=== PATIENT | male | born 1935 | race Caucasian/White ===

== ENCOUNTER 2017-08-14 19:01 | Observation (INO) ==
[2017-08-14] MEDS ORDERED: SALINE FLUSH 10ml SYRINGE IVF PRN (19:32)
--- NOTE | 2017-08-14 19:34 | Emergency Department Report ---
General Adult HPI - General Chief complaint: Weakness Stated complaint: leg weakness Time Seen by Provider: 08/14/17 19:17 Source: patient, family Mode of arrival: wheelchair Limitations: other (dementia) - History of Present Illness HPI narrative: 82-year-old male presents to the emergency department with a chief complaint of weakness in the right lower extremity and a cough. Patient noted onset of symptoms one day ago. He was at home when his symptoms began. Symptoms have been persistent in nature since onset. Cough is productive of a clear mucous. He has also been more generally weak than normal. He denies any trauma or injury. He denies any pain or discomfort. Patient was at home when his symptoms began. Symptoms have been persistent in nature since onset. - Related Data Home Medications Medication Instructions Recorded Confirmed Namenda XR (memantine) 28 mg 28 mg PO DAILY each 01/25/17 08/14/17 capsule sprinkle,extended release 24hr Nexium (Esomeprazole) 20 mg 20 mg PO DAILY cap 01/25/17 08/14/17 capsule,delayed release Zyrtec (Cetirizine) 10 mg tablet 10 mg PO DAILY PRN tab 01/25/17 08/14/17 aspirin 81 mg tablet,delayed 81 mg PO DAILY tab 02/02/17 08/14/17 release Hydrocodone/Chlorphen Oral Liq 5 ml PO PRN PRN 08/14/17 08/14/17 [Tussionex] Metformin [Glucophage] 500 mg PO BID 08/14/17 08/14/17 Simvastatin [Zocor] 10 mg PO HS 08/14/17 08/14/17 guaiFENesin [Mucinex] 1,200 mg PO BID PRN 08/14/17 08/14/17 Previous Rx's Medication Instructions Recorded carbidopa 25 mg-levodopa 100 mg 1 tab PO TID #30 tab 05/22/17 tablet Allergies Allergy/AdvReac Type Severity Reaction Status Date / Time No Known Allergies Allergy Verified 08/14/17 19:50 Review of Systems Constitutional: Reports: fever (subjective. ), weakness Eyes: Denies: eye pain, vision change ENT: Denies: ear pain, throat pain Cardiovascular: Denies: chest pain, palpitations Respiratory: Reports: cough. Denies: dyspnea, wheezes Gastrointestinal: Denies: abdominal pain, nausea, vomiting, diarrhea Genitourinary: Denies: urgency, dysuria Musculoskeletal: Denies: back pain, arthralgia Integumentary: Denies: erythema, rash Neurological: Denies: headache, numbness, paresthesias Psychiatric: Denies: anxiety, depression Endocrine: Denies: fatigue, heat or cold intolerance Hematological/Lymphatic: Denies: easy bruising, lymphadenopathy Allergic/Immunologic: Denies: facial swelling, urticaria PFSH Patient Stated Medical History Parkinson's Disease Yes Other HEENT GLASSES Bronchitis Yes Diabetes Mellitus Type 2 Yes Hx Kidney Stones Yes Clinic Medical History (Last Reviewed 02/02/17 @ 15:35 by Bushra Freeman Halima) Dementia (Chronic Medical) Hypercholesterolemia (Chronic Medical) Surgical History: 1. Prostate: 2009. 2. Kidney stone removal: 2014. 3. Colonoscopy: 2015 Family History: Family History (Last Reviewed 08/07/17 @ 10:26 by Mago Anderson Halima) Father Stroke Heart attack Mother HTN (hypertension) - Social History Smoking status: Never smoker Substance use type: does not use Alcohol intake frequency: does not drink Physical Exam - Limitations Limitations: other (dementia) - General General appearance: alert, in no apparent distress - Normal Exams: Head:: Normocephalic without trauma Eyes:: Pupils are PERRLA w/ EOMI, No scleral icterus, irritation, or foreign bodies noted ENMT:: No facial trauma, nasal exudates, pharyngeal erythema, or exudates are noted Dental: No fractured, loose, or missing teeth noted Neck:: Full range of motion, without adenopathy, JVD, bruits or thyromegaly Chest/Respirations:: Clear all alvarez, with good airflow, and symmetry bilaterally Cardiovascular:: Regular rate and rhythm, without murmur or gallop, Pulses 2+ all extremities, capillary refill, <2 seconds all extremities Abdomen:: Bowel sounds positive, soft, non-tender, non-distended, no hepatosplenomegaly, masses or bruits noted Lymphatic:: No lymphadenopathy, or lymphedema noted Musculoskeletal:: No tenderness, or deformity noted, good range of motion, all extremities Integumentary:: No rashes, hives, or bruising noted, hair and nails, without abnormality Neurological:: Patient is alert, and oriented (Alert and oriented x 2. No obvious focal deficit. ) Psychiatric:: Patient exhibits, appropriate attention, emotion and affect Course Vital Signs Temperature 98.9 F 08/14/17 19:16 Pulse Rate 82 08/14/17 19:16 Respiratory Rate 20 08/14/17 19:16 Blood Pressure 160/72 H 08/14/17 19:16 Pulse Oximetry 96 08/14/17 19:16 Temperature 97.1 F 08/14/17 23:21 Pulse Rate 72 08/15/17 00:00 Respiratory Rate 16 08/14/17 23:25 Blood Pressure 158/81 H 08/14/17 23:25 Pulse Oximetry 96 08/14/17 23:25 Medical Decision Making - MDM Narrative Medical decision making narrative: Labs / imaging were discussed in detail with the patient and family and questions are answered. is not comfortable taking the patient home due to the questionable right lower extremity weakness and may have been present earlier. states that the patient is also more confused than his typical baseline mental status. Patient also is experiencing generalized weakness and not able to perform his activities of daily living at home. He is given 500 mL of normal saline intravenously times one. He is given Tamiflu 75 mg by mouth times one. I am no source of infection at this time other than influenza A. Patient is discussed with Dr. Dooley and admitted to his service to the hospitalist (Dr. Jackman) in improved condition. No further orders from accepting physician who is in agreement with the current plan of management. - Differential Diagnosis Viral syndrome, UTI, Metabolic disorder, Weakness - Lab Data Result diagrams: 08/14/17 19:42 08/14/17 19:42 Lab Results 08/14/17 08/14/17 08/14/17 Range/Units 19:32 19:42 19:42 WBC 5.8 (4.5-11.0) T/MM3 RBC 3.94 L (4.50-5.90) M/MM3 Hgb 12.5 L (13.5-17.5) GM/DL Hct 37.1 L (41-53) % MCV 94.2 (80-100) UM3 MCH 31.7 (26-34) UUG MCHC 33.7 (31-37) GM/DL RDW Std Deviation 43.3 (36.9-50.2) FL Plt Count 95 L (130-400) T/MM3 MPV 9.3 L (9.4-12.4) UM3 Immature Gran % (Auto) 0.2 (0.0-0.5) % Neut % (Auto) 81.2 H (33-66) % Lymph % (Auto) 7.6 L (23-45) % Powell % (Auto) 10.1 H (0-9.0) % Eos % (Auto) 0.7 (0-4) % Baso % (Auto) 0.2 (0-2) % Neut # (Auto) 4.7 (1.8-7.7) T/MM3 Lymph # (Auto) 0.4 L (1-4.8) T/MM3 Powell # (Auto) 0.6 (0-0.8) T/MM3 Eos # (Auto) 0.0 (0-0.5) T/MM3 Baso # (Auto) 0.0 (0-0.2) T/MM3 Abs Immat Gran (auto) 0.01 (0.00-0.03) T/MM3 Turbidity < 20 (0-20) Sodium 137 (134-144) MEQ/L Potassium 4.3 (3.6-5) MEQ/L Chloride 97 L (98-107) MEQ/L Carbon Dioxide 25 (22-30) MEQ/L Anion Gap 15 (5-15) MEQ/L BUN 19.0 (9-20) MG/DL Creatinine 1.1 (0.8-1.5) MG/DL GFR Calculation 64 BUN/Creatinine Ratio 17 (6-26) RATIO Glucose 160 H (75-110) MG/DL Glucometer 158 (65-110) mg/dL Calculated Osmolality 269 (261-280) MOSM/KG Calcium 9.5 (8.4-10.2) MG/DL Total Bilirubin 0.40 (0.20-1.30) MG/DL Icterus Index < 2 (0-7) AST 23 (17-59) U/L ALT 27 (21-72) U/L Alkaline Phosphatase 51 (38-126) U/L Troponin I < 0.012 (0-0.12) ng/ml Total Protein 7.5 (6.3-8.2) G/DL Albumin 4.6 (3.5-5.0) G/DL Globulin 2.9 (2.4-3.6) G/DL Albumin/Globulin Ratio 1.6 (1.1-2.2) RATIO Specimen Hemolysis < 15 (0-25) Ur Collection Type Urine Color (YELLOW) Urine Clarity Urine pH (5.0-8.0) Ur Specific [place] (1.015-1.025) Urine Protein (NEGATIVE) Urine Glucose (UA) (NEGATIVE) Urine Ketones (NEGATIVE) Urine Occult Blood (NEGATIVE) Urine Nitrate (NEGATIVE) Urine Bilirubin (NEGATIVE) Urine Urobilinogen (NORMAL) EU/DL Ur Leukocyte Esterase (NEGATIVE) Urinalysis Comment Adenovirus (PCR) (Negative) B.parapertussis DNA PCR (Negative) C. pneumoniae DNA (PCR) (Negative) Coronavirus OC43 (PCR) (Negative) Coronavirus HKU1 (PCR) (Negative) Coronavirus 229E (PCR) (Negative) Coronavirus NL63 (PCR) (Negative) Human Metapneumovir PCR (Negative) Influenza A (H3) PCR (Negative) Influenza Type B (PCR) (Negative) M. pneumoniae (PCR) (Negative) Parainfluenza 1 (PCR) (Negative) Parainfluenza 2 (PCR) (Negative) Parainfluenza 3 (PCR) (Negative) Parainfluenza 4 (PCR) (Negative) RSV (PCR) (Negative) Entero/Rhino (PCR) (Negative) 08/14/17 08/14/17 Range/Units 19:44 20:21 WBC (4.5-11.0) T/MM3 RBC (4.50-5.90) M/MM3 Hgb (13.5-17.5) GM/DL Hct (41-53) % MCV (80-100) UM3 MCH (26-34) UUG MCHC (31-37) GM/DL RDW Std Deviation (36.9-50.2) FL Plt Count (130-400) T/MM3 MPV (9.4-12.4) UM3 Immature Gran % (Auto) (0.0-0.5) % Neut % (Auto) (33-66) % Lymph % (Auto) (23-45) % Powell % (Auto) (0-9.0) % Eos % (Auto) (0-4) % Baso % (Auto) (0-2) % Neut # (Auto) (1.8-7.7) T/MM3 Lymph # (Auto) (1-4.8) T/MM3 [place] # (Auto) (0-0.8) T/MM3 Eos # (Auto) (0-0.5) T/MM3 Baso # (Auto) (0-0.2) T/MM3 Abs Immat Gran (auto) (0.00-0.03) T/MM3 Turbidity (0-20) Sodium (134-144) MEQ/L Potassium (3.6-5) MEQ/L Chloride (98-107) MEQ/L Carbon Dioxide (22-30) MEQ/L Anion Gap (5-15) MEQ/L BUN (9-20) MG/DL Creatinine (0.8-1.5) MG/DL GFR Calculation BUN/Creatinine Ratio (6-26) RATIO Glucose (75-110) MG/DL Glucometer (65-110) mg/dL Calculated Osmolality (261-280) MOSM/KG Calcium (8.4-10.2) MG/DL Total Bilirubin (0.20-1.30) MG/DL Icterus Index (0-7) AST (17-59) U/L ALT (21-72) U/L Alkaline Phosphatase (38-126) U/L Troponin I (0-0.12) ng/ml Total Protein (6.3-8.2) G/DL Albumin (3.5-5.0) G/DL Globulin (2.4-3.6) G/DL Albumin/Globulin Ratio (1.1-2.2) RATIO Specimen Hemolysis (0-25) Ur Collection Type Urine, void-cc/notcc Urine Color Yellow (YELLOW) Urine Clarity Clear Urine pH 6.0 (5.0-8.0) Ur Specific [place] 1.020 (1.015-1.025) Urine Protein Negative (NEGATIVE) Urine Glucose (UA) Negative (NEGATIVE) Urine Ketones Negative (NEGATIVE) Urine Occult Blood Trace-intact (NEGATIVE) Urine Nitrate Negative (NEGATIVE) Urine Bilirubin Negative (NEGATIVE) Urine Urobilinogen 0.2 (NORMAL) EU/DL Ur Leukocyte Esterase Negative (NEGATIVE) Urinalysis Comment Microscopic not ind. Adenovirus (PCR) Negative (Negative) B.parapertussis DNA PCR Negative (Negative) C. pneumoniae DNA (PCR) Negative (Negative) Coronavirus OC43 (PCR) Negative (Negative) Coronavirus HKU1 (PCR) Negative (Negative) Coronavirus 229E (PCR) Negative (Negative) Coronavirus NL63 (PCR) Negative (Negative) Human Metapneumovir PCR Negative (Negative) Influenza A (H3) PCR Detected A* (Negative) Influenza Type B (PCR) Negative (Negative) M. pneumoniae (PCR) Negative (Negative) Parainfluenza 1 (PCR) Negative (Negative) Parainfluenza 2 (PCR) Negative (Negative) Parainfluenza 3 (PCR) Negative (Negative) Parainfluenza 4 (PCR) Negative (Negative) RSV (PCR) Negative (Negative) Entero/Rhino (PCR) Negative (Negative) - Radiology Data CT HEAD - No acute processes. CXR - Viral pattern. No obvious acute processes. - EKG Data EKG #1 EKG results narrative: Normal sinus rhythm. Normal EKG. 80 bpm. No STEMI. Disposition Clinical Impression: Influenza A, Weakness Disposition: 02 To [facility] Condition: Improved Time of Disposition: 20:00 (Admit. Dr. Dooley. ) - Seen By: physician
--- OUTSIDE RECORDS SUMMARY | 2017-08-14 19:53 | External Medical Summary | Referral Summary ---
:1935 Author Organization [facility] [address] [place] [id number] Care Team Providers Name Role Phone Zach Shepherd Primary Care Physician Encounter VC Date(s): 03/23/16 - 03/23/16 [facility] [address] [place] [phone] Discharge Diagnosis: Acute rhinitis Discharge Diagnosis: Alzheimer's dementia Discharge Disposition: 01-Home or Self Care Attending Physician: Zach Shepherd MD Admitting Physician: Zach Shepherd MD Vital Signs Most recent to oldest [Reference Range]: 1 Blood Pressure [90-140/60-90 mmHg] 136/68 mmHg (03/23/16 9:14 AM) Problem List Condition Effective Dates Status Health Status Informant Acute pain(Confirmed) Active Alzheimer's dementia(Confirmed) Active Bleeding precautions(Confirmed)1 Active Diabetes(Confirmed) Active patient History of malignant neoplasm of Active prostate(Confirmed) High cholesterol(Confirmed) Active Kidney stone(Confirmed) Active patient Prostate cancer(Confirmed) Active 1Problem added automatically by system based on initiation of Bleeding Precautions Plan of Care Allergies, Adverse Reactions, Alerts No Known Medication Allergies Medications cetirizine 10 mg, Oral, Daily, as needed for allergy symptoms, 0 Refill(s) Start Date: 02/24/16 Status: OrderedGlucometer (DME) DME Item ACCU-CHECK NURIA PLUS KIT USE DIRECTED TO MONITOR BLOOD SUGAR QTY: 1 DX:E11.0 RIGHT SOURCE , See Instructions, # 1 Each, 0 Refill(s), Pharmacy: [facility], ACCU-CHECK NURIA PLUS KIT; USE DIREC... Start Date: 05/25/15 Status: OrderedIntestinal Formula #1 Intestinal Formula #1, 0 Refill(s) Start Date: 08/18/14 Status: OrderedmetFORMIN 500 mg oral tablet See Instructions, TAKE 1 TABLET TWICE DAILY, # 180 tabs, 2 Refill(s), Pharmacy: [facility], TAKE 1 TABLET TWICE DAILY Start Date: 02/24/16 Status: OrderedMiscellaneous DME DME Item Accu-chek Nuria Plus Test Strips Test blood sugars 2-4 times a day DX :E11.65, See Instructions, # 400 Each, 3 Refill(s), Pharmacy: [facility], Accu-chek Nuria Plus Test Strips; Test blood sugars 2-4 times a day; DX:E11.65... Start Date: 02/24/16 Status: OrderedMiscellaneous DME DME Item Accu-chek softclix lancets Test blood sugars 2-4 times a day DX: 250.02, See Instructions,# 400 Each, 3 Refill(s), Pharmacy: [facility], Accu -chek softclix lancets; Test blood sugars 2-4times a day; DX:250.02, Supply Start Date: 08/18/14 Status: OrderedNamenda XR 28 mg, Oral, Daily, 0 Refill(s) Start Date: 03/23/16 Status: OrderedNamenda XR 28 mg oral capsule, extended release 28 mg 1 caps, Oral, Daily, # 30 caps, 1 Refill(s), Pharmacy: [facility], 1 caps Oral Daily Start Date: 03/23/16 Status: Orderedsimvastatin 10 mg oral tablet See Instructions, TAKE 1 TABLET ONE TIME DAILY AT BEDTIME, # 90 tabs, 2 Refill(s ), Pharmacy: [facility], TAKE 1 TABLET ONE TIME DAILY AT BEDTIME Start Date: 02/24/16 Status: Ordered Results No data available for this section Immunizations Vaccine Date Refusal Reason influenza virus vaccine, inactivated 03/30/11 influenza virus vaccine, inactivated 03/29/10 influenza virus vaccine, inactivated 03/16/09 influenza virus vaccine, inactivated 04/07/08 influenza virus vaccine, inactivated 04/27/07 influenza virus vaccine, inactivated 04/28/06 influenza virus vaccine, inactivated 05/13/03 influenza virus vaccine, inactivated 05/04/01 influenza virus vaccine, inactivated 06/30/00 influenza virus vaccine, inactivated 04/13/99 influenza virus vaccine, live 05/07/12 pneumococcal 13-valent conjugate vaccine 02/17/15 pneumococcal 23-polyvalent vaccine 08/17/09 tetanus-diphth toxoids (Td) adult/adol 02/02/99 zoster vaccine live 02/17/15 Procedures Procedure Date Related Diagnosis Body Site Colonoscopic polypectomy1 09/01/14 Esophagogastroduodenoscopy and biopsy2 09/01/14 Nephrostolithotomy Percutaneous (Right)3 07/11/14 Prostatectomy4 2009 Appendectomy Arthroscopy of knee Vasectomy 1mixed tubular adeoma/hyperplastic, repeat in 5 [id number] epithhelial changes, , to set up appointment with Dr. Nieto for endoscopic ultrasound with possible biopsy submucosl esophageal [id number] from documented surgical [id number] by radioation Social History Social History Type Response Smoking Status Never smoker Assessment and Plan Extracted from: Title: Ambulatory Patient Education Author: Zach Shepherd MD Date: Family Medicine Alzheimer Disease Alzheimer disease is a mental disorder. It causes memory loss and loss of other mental functions, such as learning, thinking, problem solving, communicating, and completing tasks. The mental losses inte rfere with the ability to perform daily activities at work, at home, or in social situations. Alzheimer disease usually starts in a person's late 60s or early 70s but can start earlier in life (familial form). The mental changes caused by this disease are permanent and worsen over time. As the i llness progresses, the ability to do even the simplest things is lost. Survival with Alzheimer disease ranges from several years to as long as 20 years. CAUSES Alzheimer disease is caused by abnormally high levels of a protein (beta- amyloid) in the brain. This protein forms very small deposits within and around the brain's nerve cells. These deposits prevent t he nerve cells from working properly. Experts are not certain what causes the beta-amyloid deposits in this disease. RISK FACTORS The following major risk factors have been identified: Increasing age. Certain genetic variations, such as Down syndrome (trisomy 21). SYMPTOMS In the early stages of Alzheimer disease, you are still able to perform daily activities but need greater effort, more time, or memory aids. Early symptoms include: Mild memory loss of recent events, names, or phone numbers. Loss of objects. Minor loss of vocabulary. Difficulty with complex tasks, such as paying bills or driving in unfamiliar locations. Other mental functions deteriorate as the disease worsens. These changes slowly go from mild to severe. Symptoms at this stage include: Difficulty remembering. You may not be able to recall personal information such as your address and telephone number. You may become confused about the date, the season of the year, or your location. Difficulty maintaining attention. You may forget what you wanted to say during conversations and repeat what you have already said. Difficulty learning new information or tasks. You may not remember what you read or the name of a new friend you met. Difficulty counting or doing math. You may have difficulty with complex math problems. You may make mistakes in paying bills or managing your checkbook. Poor reasoning and judgment. You may make poor decisions or not dress right for the weather. Difficulty communicating. You may have regular difficulty remembering words, naming objects, expressing yourself clearly, or writing sentences that make sense. Difficulty performing familiar daily activities. You may get lost driving in familiar locations or need help eating, bathing, dressing, grooming, or using the toilet. You may have difficulty maintaining bladder or bowel control. Difficulty recognizing familiar faces. You may confuse family members or close friends with one another. You may not recognize a close relative or may mistake strangers for family. Alzheimer disease also may cause changes in personality and behavior. These changes include: Loss of interest or motivation. Social withdrawal. Anxiety. Difficulty sleeping. Uncharacteristic anger or combativeness. A false belief that someone is trying to harm you (paranoia). Seeing things that are not real (hallucinations). Agitation. Confusion and disruptive behavior are often worse at night and may be triggered by changes in the environment or acute medical issues. DIAGNOSIS Alzheimer disease is diagnosed through an assessment by your health care provider. During this assessment, your health care provider will do the following: Ask you and your family, friends, or caregivers questions about your symptoms, their frequency, their duration and progression, and the effect they are having on your life. Ask questions about your personal and family medical history and use of alcohol or drugs, including prescription medicine. Perform a physical exam and order blood tests and brain imaging exams. Your health care provider may refer you to a specialist for detailed evaluation of your mental functions (neuropsychological testing). Many different brain disorders, medical conditions, and certain substances can cause symptoms that resemble Alzheimer disease symptoms. These must be ruled out before this disease can be diagnosed. If A lzheimer disease is diagnosed, it will be considered either "possible" or "probable" Alzheimer disease. "Possible" Alzheimer disease means that your symptoms are typical of the disease and no other diso rder is causing them. "Probable" Alzheimer disease means that you also have a family history of the disease or genetic test results that support the diagnosis. Certain tests, mostly used in research shelia dies, are highly specific for Alzheimer disease. TREATMENT There is currently no cure for this disease. The goals of treatment are to: Slow down the progression of the disease. Preserve mental function as long as possible. Manage behavioral symptoms. Make life easier for the person with Alzheimer disease and his or her caregivers. The following treatment options are available: Medicine. Certain medicines may help slow memory loss by changing the level of certain chemicals in the brain. Medicine may also help with behavioral symptoms. Talk therapy. Talk therapy provides education, support, and memory aids for people with this disease. It is most effective in the early stages of the illness. Caregiving. Caregivers may be family members, friends, or trained bilingual medical assistant. They help the person with Alzheimer disease with daily life activities. Caregiving may take place at home or at a nursing facility. Family support groups. These provide education, emotional support, and information about community resources to family members who are taking care of the person with this disease. This information is not intended to replace advice given to you by your health care provider. Make sure you discuss any questions you have with your health care provider. Document Released: 02/21/2005 Document Revised: 07/03/2015 Document Reviewed: 10/18/2013 [facility] Patient Information 2016 [facility]. Alzheimer Disease Caregiver Guide Alzheimer disease is an illness that affects a person's brain. It causes a person to lose the ability to remember things and make good decisions. As the disease progresses, the person is unable to take care of himself or herself and needs more and more help to do simple tasks. Taking care of someone with Alzheimer disease can be very challenging and overwhelming. MEMORY LOSS AND CONFUSION Memory loss and confusion is mild in the beginning stages of the disease. Both of these problems become more severe as the disease progresses. Eventually, the person will not recognize places or even close family members and friends. Stay calm. Respond with a short explanation. Long explanations can be overwhelming and confusing. Avoid corrections that sound like scolding. Try not to take it personally, even if the person forgets your name. BEHAVIOR CHANGES Behavior changes are part of the disease. The person may develop depression, anxiety, anger, hallucinations, or other behavior changes. These changes can come on suddenly and may be in response to pain, infection, changes in the environment (temperature, noise), overstimulation, or feeling lost or scared. Try not to take behavior changes personally. Remain calm and patient. Do not argue or try to convince the person about a specific point. This will only make him or her more agitated. Know that the behavior changes are part of the disease process and try to work through it. TIPS TO REDUCE FRUSTRATION Schedule wisely by making appointments and doing daily tasks, like bathing and dressing, when the person is at his or her best. Take your time. Simple tasks may take a lot longer, so be sure to allow for plenty of time. Limit choices. Too many choices can be overwhelming and stressful for the person. Involve the person in what you are doing. Stick to a routine. Avoid new or crowded situations, if possible. Use simple words, short sentences, and a calm voice. Only give one direction at a time. Buy clothes and shoes that are easy to put on and take off. Let people help if they offer. HOME SAFETY Keeping the home safe is very important to reduce the risk of falls and injuries. Keep floors clear of clutter. Remove rugs, magazine racks, and floor lamps. Keep hallways well lit. Put a handrail and nonslip mat in the bathtub or shower. Put childproof locks on cabinets with dangerous items, such as medicine , alcohol, guns, toxic cleaning items, sharp tools or utensils, matches, or lighters. Place locks on doors where the person cannot easily see or reach them. This helps ensure that the person cannot wander out of the house and get lost. Be prepared for emergencies. Keep a list of emergency phone numbers and addresses in a convenient area. PLANS FOR THE FUTURE Do not put off talking about finances. Talk about money management. People with Alzheimer disease have trouble managing their money as the disease gets worse. Get help from professional advisors regarding financial and legal matters. Do not put off talking about future care. Choose a power of corporate associate attorney. This is someone who can make decisions for the person with Alzheimer disease when he or she is no longer able to do so. Talk about driving and when it is the right time to stop. The person's health care provider can help give advice on this matter. Talk about the person's living situation. If he or she lives alone, you need to make sure he or she is safe. Some people need extra help at home, and others need more care at a snf or care center. SUPPORT GROUPS Joining a support group can be very helpful for caregivers of people with Alzheimer disease. Some advantages to being part of a support group include: Getting strategies to manage stress. Sharing experiences with others. Receiving emotional comfort and support. Learning new caregiving skills as the disease progresses. Knowing what community resources are available and taking advantage of them. SEEK MEDICAL CARE IF: The person has a fever. The person has a sudden change in behavior that does not improve with calming strategies. The person is unable to manage in his or her current living situation. The person threatens you or anyone else, including himself or herself. You are no longer able to care for the person. This information is not intended to replace advice given to you by your health care provider. Make sure you discuss any questions you have with your health care provider. Document Released: 02/21/2005 Document Revised: 07/03/2015 Document Reviewed: 07/18/2012 [facility] Patient Information 2016 [facility]. No follow up information was provided. Extracted from: Title: Office Visit Note Author: Zach Shepherd MD Date: 03/23/16 Assessment/Plan 1.Acute rhinitis Will have him try Rhinocort nasal spray. Ordered: Office Visit Level 3 Est 60498 Alzheimer's dementia Continue the the Namenda XL 28mg daily. Will follow up in 3 months. Ordered: Office Visit Level 3 Est 89332
--- OUTSIDE RECORDS SUMMARY | 2017-08-14 19:53 | External Medical Summary | Referral Summary ---
:1935 Author [facility] Address [address] [place] [address] [place] Castaneda [id number] Care Team Providers Name Role Phone Zach Shepherd Primary Care Physician Encounter VC Date(s): 02/24/16 - 02/24/16 [facility] [place] [phone] [place] Discharge Disposition: 01-Home or Self Care Attending Physician: Zach Shepherd MD Admitting Physician: Zach Shepherd MD Vital Signs Most recent to oldest [Reference Range]: 1 Peripheral Pulse Rate [60-100 bpm] 67 bpm (02/24/16 9:12 AM) Blood Pressure [90-140/60-90 mmHg] 140/74 mmHg (02/24/16 9:12 AM) SpO2 98 % (02/24/16 9:12 AM) Problem List Condition Effective Dates Status [...] Instructions, # 1 Each, 0 Refill(s), [facility], ACCU-CHECK NURIA PLUS KIT; USE DIREC... Start Date: 05/25/15 Status: OrderedIntestinal Formula #1 Intestinal Formula #1, 0 Refill(s) Start Date: 08/18/14 Status: OrderedmetFORMIN 500 mg oral tablet See Instructions, TAKE 1 TABLET TWICE DAILY, # 180 tabs, 2 Refill(s), Pharmacy: [facility], TAKE 1 TABLET TWICE DAILY Start Date: 02/24/16 Status: OrderedMiscellaneous DME DME Item Accu-chek Nuria Plus Test Strips Test blood sugars 2-4 times a day DX :E11.65, See Instructions, # 400 Each, 3 Refill(s), Pharmacy: [facility], Accu-chek Nuria Plus Test Strips; Test blood sugars 2-4 times a day; DX:E11.65... Start Date: 02/24/16 Status: OrderedMiscellaneous DME DME Item Accu-chek softclix lancets Test blood sugars 2-4 times a day DX: 250.02, See Instructions,# 400 Each, 3 Refill(s), Pharmacy: [facility], Accu -chek softclix lancets; Test blood sugars 2-4times a day; DX:250.02, Supply Start Date: 08/18/14 Status: Orderedsimvastatin 10 mg oral tablet See Instructions, TAKE 1 TABLET ONE TIME DAILY AT BEDTIME, # 90 tabs, 2 Refill(s ), Pharmacy: [facility], TAKE 1 TABLET [...] Vasectomy 1mixed tubular adeoma/hyperplastic, repeat in 5 [id number] epithhelial changes, , to set up appointment with Dr. Nieto for endoscopic ultrasound with possible biopsy submucosl esophageal [id number] from documented surgical [id number] by radioation Social History Social History Type Response Smoking Status Never smoker Assessment and Plan Extracted from: Title: Ambulatory Patient Education Author: Zach Shepherd MD Date: Family Medicine Alzheimer Disease Caregiver Guide Alzheimer disease is [...] about future care. Choose a power of attorney general. This is someone who can make decisions [...] and others need more care at a half-way or care center. SUPPORT GROUPS Joining a [...] 02/21/2005 Document Revised: 07/03/2015 Document Reviewed: 07/18/2012 [facility] Patient Information 2016 [facility]. Dementia Dementia is a general term for problems with brain function. A person with dementia has memory loss and a hard time with at least one other brain function such as thinking, speaking, or problem solving. Dementia can affect social functioning, how you do your job, your mood, or your personality. The changes may be hidden for a long time. The earliest forms of this disease are usually not detected by family or friends. Dementia can be: Irreversible. Potentially reversible. Partially reversible. Progressive. This means it can get worse over time. CAUSES Irreversible dementia causes may include: Degeneration of brain cells (Alzheimer disease or Lewy body dementia). Multiple small strokes (vascular dementia). Infection (chronic meningitis or Creutzfeldt-Terry disease). Frontotemporal dementia. This affects younger people, age 40 to 70, compared to those who have Alzheimer disease. Dementia associated with other disorders like Parkinson disease, [place] disease, or HIV-associated dementia. Potentially or partially reversible dementia causes may include: Medicines. Metabolic causes such as excessive alcohol intake, vitamin B12 deficiency, or thyroid disease. Masses or pressure in the brain such as a tumor, blood clot, or hydrocephalus. SIGNS AND SYMPTOMS Symptoms are often hard to detect. Family members or coworkers may not notice them early in the disease process. Different people with dementia may have different symptoms. Symptoms can include: A hard time with memory, especially recent memory. Long-term memory may not be impaired. Asking the same question multiple times or forgetting something someone just said. A hard time speaking your thoughts or finding certain words. A hard time solving problems or performing familiar tasks (such as how to use a telephone). Sudden changes in mood. Changes in personality, especially increasing moodiness or mistrust. Depression. A hard time understanding complex ideas that were never a problem in the past. DIAGNOSIS There are no specific tests for dementia. Your health care provider may recommend a thorough evaluation. This is because some forms of dementia can be reversible. The evaluation will likely include a physical exam and getting a detailed history from you and a family member. The history often gives the best clues and suggestions for a diagnosis. Memory testing may be done. A detailed brain function evaluation called neuropsychologic testing may be helpful. Lab tests and brain imaging (such as a CT scan or MRI scan) are sometimes important. Sometimes observation and re-evaluation over time is very helpful. TREATMENT Treatment depends on the cause. If the problem is a vitamin deficiency, it may be helped or cured with supplements. For dementias such as Alzheimer disease, medicines are available to stabilize or slow the course of the disease. There are no cures for this type of dementia. Your health care provider can help direct you to groups, organizations, and other health care providers to help with decisions in the care of you or your loved one. HOME CARE INSTRUCTIONS The care of individuals with dementia is varied and dependent upon the progression of the dementia. The following suggestions are intended for the person living with, or caring for, the person with dementia. Create a safe environment. Remove the locks on bathroom doors to prevent the person from accidentally locking himself or herself in. Use childproof latches on kitchen cabinets and any place where cleaning supplies, chemicals, or alcohol are kept. Use childproof covers in unused electrical outlets. Install childproof devices to keep doors and windows secured. Remove stove knobs or install safety knobs and an automatic shut-off on the stove. Lower the temperature on water heaters. Label medicines and keep them locked up. Secure knives, lighters, matches, power tools, and guns, and keep these items out of reach. Keep the house free from clutter. Remove rugs or anything that might contribute to a fall. Remove objects that might break and hurt the person. Make sure lighting is good, both inside and outside. Install grab rails as needed. Use a monitoring device to alert you to falls or other needs for help. Reduce confusion. Keep familiar objects and people around. Use night lights or dim lights at night. Label items or areas. Use reminders, notes, or directions for daily activities or tasks. Keep a simple, consistent routine for waking, meals, bathing, dressing, and bedtime. Create a calm, quiet environment. Place large clocks and calendars prominently. Display emergency numbers and home address near all telephones. Use cues to establish different times of the day. An example is to open curtains to let the natural light in during the day. Use effective communication. Choose simple words and short sentences. Use a gentle, calm tone of voice. Be careful not to interrupt. If the person is struggling to find a word or communicate a thought, try to provide the word or thought. Ask one question at a time. Allow the person ample time to answer questions. Repeat the question again if the person does not respond. Reduce nighttime restlessness. Provide a comfortable bed. Have a consistent nighttime routine. Ensure a regular walking or physical activity schedule. Involve the person in daily activities as much as possible. Limit napping during the day. Limit caffeine. Attend social events that stimulate rather than overwhelm the senses. Encourage good nutrition and hydration. Reduce distractions during meal times and snacks. Avoid foods that are too hot or too cold. Monitor chewing and swallowing ability. Continue with routine vision, hearing, dental, and medical screenings. Give medicines only as directed by the health care provider. Monitor driving abilities. Do not allow the person to drive when safe driving is no longer possible. [place] with an identification program which could provide location assistance in the event of a missing person situation. SEEK MEDICAL CARE IF: New behavioral problems start such as moodiness, aggressiveness, or seeing things that are not there (hallucinations). Any new problem with brain function happens. This includes problems with balance, speech, or falling a lot. Problems with swallowing develop. Any symptoms of other illness happen. Small changes or worsening in any aspect of brain function can be a sign that the illness is getting worse. It can also be a sign of another medical illness such as infection. Seeing a health care provider right away is important. SEEK IMMEDIATE MEDICAL CARE IF: A fever develops. New or worsened confusion develops. New or worsened sleepiness develops. Staying awake becomes hard to do. This information is not intended to replace advice given to you by your health care provider. Make sure you discuss any questions you have with your health care provider. Document Released: 12/06/2001 Document Revised: 07/03/2015 Document Reviewed: 11/07/2011 [facility] Patient Information 2016 [facility]. Diabetes and Standards of Medical Care Diabetes is complicated. You may find that your diabetes team includes a dietitian, nurse, visual educator, eye doctor, and more. To help everyone know what is going on and to help you get the care yo u deserve, the following schedule of care was developed to help keep you on track. Below are the tests, exams, vaccines, medicines, education, and plans you will need. HbA1c test This test shows how well you have controlled your glucose over the past 23 months. It is used to see if your diabetes management plan needs to be adjusted. It is performed at least 2 times a year if you are meeting treatment goals. It is performed 4 times a year if therapy has changed or if you are not meeting treatment goals. Blood pressure test This test is performed at every routine medical visit. The goal is less than 140/90 mm Hg for most people, but 130/80 mm Hg in some cases. Ask your health care provider about your goal. Dental exam Follow up with the dentist regularly. Eye exam If you are diagnosed with type 1 diabetes as a child, get an exam upon reaching the age of 10 years or older and having had diabetes for 35 years. Yearly eye exams are recommended after that initial eye exam. If you are diagnosed with type 1 diabetes as an adult, get an exam within 5 years of diagnosis and then yearly. If you are diagnosed with type 2 diabetes, get an exam as soon as possible after the diagnosis and then yearly. Foot care exam Visual foot exams are performed at every routine medical visit. The exams check for cuts, injuries, or other problems with the feet. You should have a complete foot exam performed every year. This exam includes an inspection of the structure and skin of your feet, a check of the pulses in your feet, and a check of the sensation in your feet. Type 1 diabetes: The first exam is performed 5 years after diagnosis. Type 2 diabetes: The first exam is performed at the time of diagnosis. Check your feet nightly for cuts, injuries, or other problems with your feet. Tell your health care provider if anything is not healing. Kidney function test (urine microalbumin) This test is performed once a year. Type 1 diabetes: The first test is performed 5 years after diagnosis. Type 2 diabetes: The first test is performed at the time of diagnosis. A serum creatinine and estimated glomerular filtration rate (eGFR) test is done once a year to assess the level of chronic kidney disease (CKD), if present. Lipid profile (cholesterol, HDL, LDL, triglycerides) Performed every 5 years for most people. The goal for LDL is less than 100 mg/dL. If you are at high risk, the goal is less than 70 mg/dL. The goal for HDL is 40 mg/dL50 mg/dL for men and 50 mg/dL60 mg/dL for women. An HDL cholesterol of 60 mg/dL or higher gives some protection against heart disease. The goal for triglycerides is less than 150 mg/dL. Immunizations The flu (influenza) vaccine is recommended yearly for every person 6 months of age or older who has diabetes. The pneumonia (pneumococcal) vaccine is recommended for every person 2 years of age or older who has diabetes. Adults 65 years of age or older may receive the pneumonia vaccine as a series of two separate shots. The hepatitis B vaccine is recommended for adults shortly after they have been diagnosed with diabetes. The Tdap (tetanus, diphtheria, and pertussis) vaccine should be given: According to normal childhood vaccination schedules, for children. Every 10 years, for adults who have diabetes. Diabetes self-management education Education is recommended at diagnosis and ongoing as needed. Treatment plan Your treatment plan is reviewed at every medical visit. This information is not intended to replace advice given to you by your health care provider. Make sure you discuss any questions you have with your health care provider. Document Released: 04/09/2010 Document Revised: 07/03/2015 Document Reviewed: 11/12/2013 [employer] Patient Information 2016 [employer]. No follow up information was provided. Extracted from: Title: Office Visit Note Author: Zach Shepherd MD Date: 02/24/16 Assessment/Plan Alzheimer's dementia Sample of Namenda XL and follow up in 3 weeks. Ordered: Office Visit Level 4 Est 77105 Office Visit Level 4 Est 73367 Diabetes Continue with the current medications and Lab. Ordered: Comprehensive Metabolic Panel Hemoglobin A1c Office Visit Level 4 Est 68820 Office Visit Level 4 Est 64472 High cholesterol Lab. Ordered: Lipid Panel Office Visit Level 4 Est 06008 Office Visit Level 4 Est 17578 History of malignant neoplasm of prostate Stable. Ordered: Office Visit Level 4 Est 85831 Office Visit Level 4 Est 96468 Prostate Specific Antigen Orders: Durable Medical Equipment Rx, DME Item Accu-chek Nuria Plus Test Strips Test blood sugars 2-4 times a day DX:E11.65, See Instructions, # 400 Each , 3 Refill(s), Pharmacy: [facility], Accu-chek Nuria Plus Test Strips; Test blood sugars 2-4 times a day; DX:... metFORMIN, See Instructions, TAKE 1 TABLET TWICE DAILY, # 180 tabs, 2 Refill( s), Pharmacy: [facility], TAKE 1 TABLET TWICE DAILY simvastatin, See Instructions, TAKE 1 TABLET ONE TIME DAILY AT BEDTIME, # 90 tabs, 2 Refill(s), Pharmacy: [facility], TAKE 1 TABLET ONE TIME DAILY AT BEDTIME
--- OUTSIDE RECORDS SUMMARY | 2017-08-14 19:53 | External Medical Summary | Referral Summary ---
:1935 [facility] Address [address] [place] [address] [place] Castan[place] [phone] Care Team Providers Name Role Phone Zach Shepherd Primary Care Physician Encounter VC Date(s): 07/20/16 - 07/20/16 [facility] [place] [phone] [place] Discharge Disposition: 01-Home or Self Care Attending Physician: Zach Shepherd MD Admitting Physician: Zach Shepherd MD Vital Signs Most recent to oldest [Reference Range]: 1 Peripheral Pulse Rate [60-100 bpm] 82 bpm (07/20/16 1:10 PM) Blood Pressure [90-140/60-90 mmHg] 124/68 mmHg (07/20/16 1:10 PM) SpO2 97 % (07/20/16 1:10 PM) Problem List Condition Effective Dates Status Health Status Informant Acute pain(Confirmed) Active Alzheimer's dementia(Confirmed) Active Bleeding precautions(Confirmed)1 Active Diabetes(Confirmed) Active patient History of malignant neoplasm of Active prostate(Confirmed) High cholesterol(Confirmed) Active Kidney stone(Confirmed) Active patient Prostate cancer(Confirmed) Active 1Problem added automatically by system based on initiation of Bleeding Precautions Plan of Care Allergies, Adverse Reactions, Alerts No Known Medication Allergies Medications aspirin 81 mg, Oral, Daily, 0 Refill(s) Start Date: 07/20/16 Status: Orderedcetirizine 10 mg, Oral, Daily, as needed for allergy symptoms, 0 Refill(s) Start Date: 02/24/16 Status: OrderedGlucometer (DME) DME Item ACCU-CHECK NURIA PLUS KIT USE DIRECTED TO MONITOR BLOOD SUGAR QTY: 1 DX:E11.0 RIGHT SOURCE , See Instructions, # 1 Each, 0 Refill(s), Pharmacy: [facility], ACCU-CHECK NURIA PLUS KIT; USE DIREC... Start Date: 05/25/15 Status: OrderedIntestinal Formula #1 Intestinal Formula #1, 0 Refill(s) Start Date: 08/18/14 Status: OrderedmetFORMIN 500 mg oral tablet See Instructions, TAKE 1 TABLET TWICE DAILY, # 180 tabs, 2 Refill(s), Pharmacy: [facility], TAKE 1 TABLET TWICE DAILY Start Date: 02/24/16 Status: OrderedMiscellaneous DME DME Item Accu-chek Nuria Plus Test Strips Test blood sugars 2-4 times a day DX :E11.65, See Instructions, # 400 Each, 3 Refill(s), Pharmacy: [facility], Accu-chek Nuria Plus Test Strips; Test blood sugars 2-4 times a day; DX:E11.65... Start Date: 02/24/16 Status: OrderedMiscellaneous DME DME Item Accu-chek softclix lancets Test blood sugars 2-4 times a day DX: 250.02, See Instructions,# 400 Each, 3 Refill(s), Pharmacy: [facility], Accu -chek softclix lancets; Test blood sugars 2-4times a day; DX:250.02, Supply Start Date: 08/18/14 Status: OrderedNamenda XR 28 mg oral capsule, extended release See Instructions, TAKE 1 CAPSULE EVERY DAY, # 60 caps, 1 Refill(s), eRx: [facility], TAKE 1 CAPSULE EVERY DAY Start Date: 05/03/16 Status: OrderedProAir HFA 90 mcg/inh inhalation aerosol 2 puffs, Inhalation, q4hr, as needed for wheezing, # 8.5 g, 2 Refill(s), Pharmacy: [facility] [id number] Start Date: 07/20/16 Status: Orderedsimvastatin 10 mg oral tablet See Instructions, TAKE 1 TABLET ONE TIME DAILY AT BEDTIME, # 90 tabs, 2 Refill(s ), Pharmacy: [facility], TAKE 1 TABLET ONE TIME DAILY AT BEDTIME Start Date: 02/24/16 Status: Ordered Results No data available for this section Immunizations Given and Recorded Vaccine Date Status Refusal Reason influenza virus vaccine, inactivated 03/30/11 Recorded influenza virus vaccine, inactivated 03/29/10 Recorded influenza virus vaccine, inactivated 03/16/09 Recorded influenza virus vaccine, inactivated 04/07/08 Recorded influenza virus vaccine, inactivated 04/27/07 Recorded influenza virus vaccine, inactivated 04/28/06 Recorded influenza virus vaccine, inactivated 05/13/03 Recorded influenza virus vaccine, inactivated 05/04/01 Recorded influenza virus vaccine, inactivated 06/30/00 Recorded influenza virus vaccine, inactivated 04/13/99 Recorded influenza virus vaccine, live 05/07/12 Given pneumococcal 13-valent conjugate vaccine 02/17/15 Given pneumococcal 23-polyvalent vaccine 08/17/09 Recorded tetanus-diphth toxoids (Td) adult/adol 02/02/99 Given zoster vaccine live 02/17/15 Given Procedures Procedure Date Related Diagnosis Body Site Colonoscopic polypectomy1 09/01/14 Esophagogastroduodenoscopy and biopsy2 09/01/14 Nephrostolithotomy Percutaneous (Right)3 07/11/144 2009 Appendectomy Arthroscopy of knee Vasectomy 1mixed tubular adeoma/hyperplastic, repeat in 5 [id number] epithhelial changes, , to set up appointment with Dr. Nieto for endoscopic ultrasound with possible biopsy submucosl esophageal [id number] from documented surgical [id number] by radioation Social History Social History Type Response Smoking Status Never smoker Assessment and Plan No data available for this section
--- OUTSIDE RECORDS SUMMARY | 2017-08-14 19:53 | External Medical Summary | Referral Summary ---
:1935 Author Organization [facility] [place] [id number] Care Team Providers Name Role Phone Zach Shepherd Primary Care Physician Encounter VC Date(s): 06/29/16 - 06/29/16 [facility] [place] [id number]- Discharge Diagnosis: Prostate cancer Discharge Diagnosis: Alzheimer's dementia Discharge Diagnosis: Kidney stone Discharge Diagnosis: Diabetes Discharge Disposition: 01-Home or Self Care Attending Physician: aZch Shepherd MD Admitting Physician: Zach Shepherd MD Vital Signs Most recent to oldest [Reference Range]: 1 Blood Pressure [90-140/60-90 mmHg] 132/70 mmHg (06/29/16 1:20 PM) Problem List Condition Effective Dates Status [...] Instructions, # 1 Each, 0 Refill(s), Pharmacy: [facility], ACCU-CHECK NURIA PLUS KIT; USE DIREC... Start Date: 05/25/15 Status: OrderedIntestinal Formula #1 Intestinal Formula #1, 0 Refill(s) Start Date: 08/18/14 Status: OrderedmetFORMIN 500 mg oral tablet See Instructions, TAKE 1 TABLET TWICE DAILY, # 180 tabs, 2 Refill(s), Pharmacy: [facility], TAKE 1 TABLET TWICE DAILY Start Date: 02/24/16 Status: OrderedMiscellaneous DME DME Item Accu-chek Nuria Plus Test Strips Test blood sugars 2-4 times a day DX :E11.65, See Instructions, # 400 Each, 3 Refill(s), Pharmacy: [facility], Accu-chek Nuria Plus Test Strips; Test blood sugars 2-4 times a day; DX:E11.65... Start Date: 02/24/16 Status: OrderedMiscellaneous DME DME Item Accu-chek softclix lancets Test blood sugars 2-4 times a day DX: 250.02, See Instructions,# 400 Each, 3 Refill(s), Pharmacy: [facility], Accu -chek softclix lancets; Test blood sugars 2-4times a day; DX:250.02, Supply Start Date: 08/18/14 Status: OrderedNamenda XR 28 mg oral capsule, extended release See Instructions, TAKE 1 CAPSULE EVERY DAY, # 60 caps, 1 Refill(s), eRx: [facility], TAKE 1 CAPSULE EVERY DAY Start Date: 05/03/16 Status: Orderedsimvastatin 10 mg oral tablet See Instructions, TAKE 1 TABLET ONE TIME DAILY AT BEDTIME, # 90 tabs, 2 Refill(s ), Pharmacy: [facility], TAKE 1 TABLET ONE TIME DAILY AT BEDTIME Start Date: 02/24/16 Status: Ordered Results Chemistry Most recent to oldest [Reference Range]: 1 Sodium Lvl [135-144 mEq/L] 140 mEq/L (06/29/16 2:14 PM) Potassium Lvl [3.5-5.2 mEq/L] 4.2 mEq/L (06/29/16 2:14 PM) Chloride [99-111 mEq/L] 104 mEq/L (06/29/16 2:14 PM) CO2 [23-31 mEq/L] 24 mEq/L (06/29/16 2:14 PM) AGAP [3-20] 12 (06/29/16 2:14 PM) BUN [8-26 mg/dL] 20 mg/dL (06/29/16 2:14 PM) Glucose Lvl [70-99 mg/dL] 164 mg/dL *HI* (06/29/16 2:14 PM) Creatinine Lvl [0.72-1.25 mg/dL] 1.11 mg/dL (06/29/16 2:14 PM) eGFR [>60 mL/min] >60 mL/min 1 (06/29/16 2:14 PM) Calcium Lvl [8.9-10.5 mg/dL] 9.6 mg/dL (06/29/16 2:14 PM) Hgb A1c [4.1-5.6 %] 6.3 % *HI* (06/29/16 2:14 PM) eAvg Glucose 134.1 mg/dL (06/29/16 2:14 PM) 1Result Comment: Multiply eGFR results by 1.21 for race. Immunizations Given and Recorded Vaccine Date Status [...] Vasectomy 1mixed tubular adeoma/hyperplastic, repeat in 5 [id number] epithhelial changes, , to set up appointment with Dr. Nieto for endoscopic ultrasound with possible biopsy submucosl esophageal [id number] from documented surgical [id number] by radioation Social History Social History Type Response Smoking Status Never smoker Assessment and Plan Extracted from: Title: Ambulatory Patient Education Author: Zach Shepherd MD Date: 06/29/16 [facility] Alzheimer Disease Caregiver Guide Alzheimer disease [...] about future care. Choose a power of state's attorney. This is someone who can make [...] and others need more care at a fci or care center. SUPPORT GROUPS Joining a [...] 02/21/2005 Document Revised: 07/03/2015 Document Reviewed: 07/18/2012 [employer] Interactive Patient Education 2016 [employer]. Health and Wellness Diabetes and Standards of Medical Care Diabetes is complicated. You may find that your diabetes team includes a dietitian, nurse, school vocational educator, eye doctor, and more. To help [...] 04/09/2010 Document Revised: 07/03/2015 Document Reviewed: 11/12/2013 [employer] Interactive Patient Education 2016 [employer] Preventive Medicine Diabetes and Foot Care Diabetes may cause you to have problems because of poor blood supply ( circulation) to your feet and legs. This may cause the skin on your feet to become thinner, break easier, and heal more slowly. Your skin may become dry, and the skin may peel and crack. You may also have nerve damage in your legs and feet causing decreased feeling in them. You may not notice minor injuries to your feet that could l ead to infections or more serious problems. Taking care of your feet is one of the most important things you can do for yourself. HOME CARE INSTRUCTIONS Wear shoes at all times, even in the house. Do not go barefoot. Bare feet are easily injured. Check your feet daily for blisters, cuts, and redness. If you cannot see the bottom of your feet, use a mirror or ask someone for help. Wash your feet with warm water (do not use hot water) and mild soap. Then pat your feet and the areas between your toes until they are completely dry. Do not soak your feet as this can dry your skin. Apply a moisturizing lotion or petroleum jelly (that does not contain alcohol and is unscented) to the skin on your feet and to dry, brittle toenails. Do not apply lotion between your toes. Trim your toenails straight across. Do not dig under them or around the cuticle. File the edges of your nails with an emery board or nail file. Do not cut corns or calluses or try to remove them with medicine. Wear clean socks or stockings every day. Make sure they are not too tight. Do not wear knee-high stockings since they may decrease blood flow to your legs. Wear shoes that fit properly and have enough cushioning. To break in new shoes, wear them for just a few hours a day. This prevents you from injuring your feet. Always look in your shoes before y ou put them on to be sure there are no objects inside. Do not cross your legs. This may decrease the blood flow to your feet. If you find a minor scrape, cut, or break in the skin on your feet, keep it and the skin around it clean and dry. These areas may be cleansed with mild soap and water. Do not cleanse the area with peroxide, alcohol, or iodine. When you remove an adhesive bandage, be sure not to damage the skin around it. If you have a wound, look at it several times a day to make sure it is healing. Do not use heating pads or hot water bottles. They may burn your skin. If you have lost feeling in your feet or legs, you may not know it is happening until it is too late. Make sure your health care provider performs a complete foot exam at least annually or more often if you have foot problems. Report any cuts, sores, or bruises to your health care provider immediately. SEEK MEDICAL CARE IF: You have an injury that is not healing. You have cuts or breaks in the skin. You have an ingrown nail. You notice redness on your legs or feet. You feel burning or tingling in your legs or feet. You have pain or cramps in your legs and feet. Your legs or feet are numb. Your feet always feel cold. SEEK IMMEDIATE MEDICAL CARE IF: There is increasing redness, swelling, or pain in or around a wound. There is a red line that goes up your leg. Pus is coming from a wound. You develop a fever or as directed by your health care provider. You notice a bad smell coming from an ulcer or wound. This information is not intended to replace advice given to you by your health care provider. Make sure you discuss any questions you have with your health care provider. Document Released: 06/09/2001 Document Revised: 02/12/2014 Document Reviewed: 11/19/2013 [employer] Interactive Patient Education 2016 [employer] No follow up information was provided. Extracted from: Title: Office Visit Note Author: Zach Shepherd MD Date: 06/29/16 Assessment/Plan Alzheimer's dementia Stable with the Namenda. Ordered: Periodic Comp Preventive Med 65+ years Est 39025 Diabetes Controlled on diet and exercise. Ordered: Hemoglobin A1c Periodic Comp Preventive Med 65+ years Est 11030 Kidney stone rechecking the BMP. Ordered: Basic Metabolic Panel Periodic Comp Preventive Med 65+ years Est 73078 Prostate cancer stable. Ordered: Basic Metabolic Panel Periodic Comp Preventive Med 65+ years Est 22768 Follow up in 6 months.
--- OUTSIDE RECORDS SUMMARY | 2017-08-14 19:54 | External Medical Summary | Referral Summary ---
:1935 Author Organization [facility] [place] [id number] Care Team Providers Name Role Phone Zach Shepherd Primary Care Physician Encounter VC Date(s): 02/17/15 - 02/17/15 [facility] [place] [phone] Discharge Diagnosis: Need for pneumococcal vaccination Discharge Diagnosis: OTHER AND UNSPECIFIED HYPERLIPIDEMIA Discharge Diagnosis: Cardiac murmur Discharge Diagnosis: Personality change Discharge Diagnosis: Need for zoster vaccine Discharge Diagnosis: Diabetes mellitus without mention of complication, type II or unspecified type,not stated as uncontrolled Discharge Disposition: 01-Home or Self Care Attending Physician: Zach Shepherd MD Admitting Physician: Zach Shepherd MD Vital Signs Most recent to oldest [Reference Range]: 1 Peripheral Pulse Rate [60-100 bpm] 68 bpm (02/17/15 1:33 PM) Blood Pressure [90-140/60-90 mmHg] 134/70 mmHg (02/17/15 1:33 PM) Problem List Condition Effective Dates Status Health Status Informant Acute pain(Confirmed) Active Bleeding precautions(Confirmed)1 Active Diabetes(Confirmed) Active patient History of malignant neoplasm of Active prostate(Confirmed) Kidney stone(Confirmed) Active patient Prostate cancer(Confirmed) Active 1Problem added automatically by system based on initiation of Bleeding Precautions Plan of Care Allergies, Adverse Reactions, Alerts No Known Medication Allergies Medications docusate 100 mg, Oral, BID, as needed for constipation, 0 Refill(s) Start Date: 02/17/15 Status: Orderedemergen C emergen C, 1 package, Oral, Daily, 0 Refill(s) Start Date: 07/04/14 Status: OrderedGlucometer (DME) DME Item ACCU-CHECK NURIA PLUS KIT USE DIRECTED TO MONITOR BLOOD SUGAR QTY: 1 DX:E11.0 RIGHT SOURCE , See Instructions, # 1 Each, 0 Refill(s), Pharmacy: [facility], ACCU-CHECK NURIA PLUS KIT; USE DIREC... Start Date: 05/25/15 Status: OrderedIntestinal Formula #1 Intestinal Formula #1, 0 Refill(s) Start Date: 08/18/14 Status: OrderedmetFORMIN 500 mg oral tablet See Instructions, TAKE 1 TABLET TWICE DAILY, # 180 tabs, 2 Refill(s), eRx: [facility], TAKE 1 TABLET TWICE DAILY Start Date: 07/14/15 Status: OrderedMiraLax oral powder for reconstitution 17 g, Oral, Daily, dissolve in water before taking, # 255 g, 0 Refill(s) Start Date: 08/18/14 Status: OrderedMiscellaneous DME DME Item Accu-chek softclix lancets Test blood sugars 2-4 times a day DX: 250.02, See Instructions,# 400 Each, 3 Refill(s), Pharmacy: [facility], Accu -chek softclix lancets; Test blood sugars 2-4times a day; DX:250.02, Supply Start Date: 08/18/14 Status: OrderedMiscellaneous DME DME Item Accu-chek Nuria Plus Test Strips Test blood sugars 2-4 times a day DX :250.02, See Instructions, # 400 Each, 3 Refill(s), Pharmacy: [facility], Accu-chek Nuria Plus Test Strips; Test blood sugars 2-4 times a day; DX:250.02, Supply Start Date: 08/18/14 Status: Orderedpromethazine-codeine 6.25 mg-10 mg/5 mL oral syrup 5 mL, Oral, Bedtime (once a day), as needed for cough, Fax to [facility], # 90 mL, 0 Refill(s) Start Date: 08/24/15 Status: Orderedsimvastatin 10 mg oral tablet See Instructions, TAKE 1 TABLET ONE TIME DAILY AT BEDTIME, # 90 tabs, 1 Refill(s ), eRx: [facility], TAKE 1 TABLET ONE TIME DAILY AT BEDTIME Start Date: 07/14/15 Status: Ordered Results No data available for [...] Vasectomy 1mixed tubular adeoma/hyperplastic, repeat in 5 [id number] epithhelial changes, , to set up appointment with Dr. Nieto for endoscopic ultrasound with possible biopsy submucosl esophageal [id number] from documented surgical [id number] by radioation Social History Social History Type Response Smoking Status Never smoker Assessment and Plan Extracted from: Title: Ambulatory Patient Education Author: Zach Shepherd MD Date: Family Medicine Heart Murmur A heart murmur is an extra sound heard by your health care provider when listening to your heart with a device called a stethoscope. The sound comes from turbulence when blood flows through the heart an d may be a "hum" or "whoosh" sound heard when the heart beats. There are two types of heart murmurs: Innocent murmurs. Most people with this type of heart murmur do not have a heart problem. Many children have innocent heart murmurs. Your health care provider may suggest some basic testing to know whether your murmur is an innocent murmur. If an innocent heart murmur is found, there is no need for further tests or treatment and no need to restrict activities or stop playing sports. Abnormal murmurs. These types of murmurs can occur in children and adults. In children, abnormal heart murmurs are typically caused from heart defects that are present at (congenital). In sherry lts, abnormal murmurs are usually from heart valve problems caused by disease, infection, or aging. CAUSES All heart murmurs are a result of an issue with your heart valves. Normally, these valves open to let blood flow through or out of your heart and then shut to keep it from flowing backward. If they do not work properly, you could have: RegurgitationWhen blood leaks back through the valve in the wrong direction. Mitral valve prolapseWhen the mitral valve of the heart has a loose flap and does not close tightly. StenosisWhen the valve does not open enough and blocks blood flow. SIGNS AND SYMPTOMS Innocent murmurs do not cause symptoms, and many people with abnormal murmurs may or may not have symptoms. If symptoms do develop, they may include: Shortness of breath. Blue coloring of the skin, especially on the fingertips. Chest pain. Palpitations, or feeling a fluttering or skipped heartbeat. Fainting. Persistent cough. Getting tired much faster than expected. DIAGNOSIS A heart murmur might be heard during a sports physical or during any type of examination. When a murmur is heard, it may suggest a possible problem. When this happens, your health care provider may ask you to see a change control specialist (dishcloth folder). You may also be asked to have one or more heart tests. In these cases, testing may vary depending on what your health care provider heard. Tests for a heart murmur may include: Electrocardiogram. Echocardiogram. MRI. For children and adults who have an abnormal heart murmur and want to play sports, it is important to complete testing, review test results, and receive recommendations from your health care provider. I f heart disease is present, it may not be safe to play. TREATMENT Innocent murmurs require no treatment or activity restriction. If an abnormal murmur represents a problem with the heart, treatment will depend on the exact nature of the problem. In these cases, medici ne or surgery may be needed to treat the problem. HOME CARE INSTRUCTIONS If you want to participate in sports or other types of strenuous physical activity, it is important to discuss this first with your health care provider. If the murmur represents a problem with the hear t and you choose to participate in sports, there is a small chance that a serious problem (including sudden ) could result. SEEK MEDICAL CARE IF: You feel that your symptoms are slowly worsening. You develop any new symptoms that cause concern. You feel that you are having side effects from any medicines prescribed. SEEK IMMEDIATE MEDICAL CARE IF: You develop chest pain. You have shortness of breath. You notice that your heart beats irregularly often enough to cause you to worry. You have fainting spells. Your symptoms suddenly get worse. Document Released: 07/20/2005 Document Revised: 06/17/2014 Document Reviewed: 02/17/2014 [facility] Patient Information 2015 [employer]. This information is not intended to replace advice given to you by your health care provider. Make sure you discuss any questions you have with your health care provider. Preventive Care for Adults A healthy lifestyle and preventive care can promote health and wellness. Preventive health guidelines for men include the following liu practices: A routine yearly physical is a good way to check with your health care provider about your health and preventative screening. It is a chance to share any concerns and updates on your health and to receive a thorough exam. Visit your dentist for a routine exam and preventative care every 6 months. [place] your teeth twice a day and floss once a day. Good oral hygiene prevents tooth decay and gum disease. The frequency of eye exams is based on your age, health, family medical history, use of contact lenses, and other factors. Follow your health care provider's recommendations for frequency of eye exams. Eat a healthy diet. Foods such as vegetables, fruits, whole grains, low- fat dairy products, and lean protein foods contain the nutrients you need without too many calories. Decrease your intake of foods high in solid fats, added sugars, and salt. Eat the right amount of calories for you.Get information about a proper diet from your health care provider, if necessary. Regular physical exercise is one of the most important things you can do for your health. Most adults should get at least 150 minutes of moderate- intensity exercise (any activity that increases you r heart rate and causes you to sweat) each week. In addition, most adults need muscle-strengthening exercises on 2 or more days a week. Maintain a healthy weight. The body mass index (BMI) is a screening tool to identify possible weight problems. It provides an estimate of body fat based on height and weight. Your health care provi ariel can find your BMI and can help you achieve or maintain a healthy weight. For adults 20 years and older: A BMI below 18.5 is considered underweight. A BMI of 18.5 to 24.9 is normal. A BMI of 25 to 29.9 is considered overweight. A BMI of 30 and above is considered obese. Maintain normal blood lipids and cholesterol levels by exercising and minimizing your intake of saturated fat. Eat a balanced diet with plenty of fruit and vegetables. Blood tests for lipids and ch olesterol should begin at age 20 and be repeated every 5 years. If your lipid or cholesterol levels are high, you are over 50, or you are at high risk for heart disease, you may need your cholesterol le vels checked more frequently.Ongoing high lipid and cholesterol levels should be treated with medicines if diet and exercise are not working. If you smoke, find out from your health care provider how to quit. If you do not use tobacco, do not start. Lung cancer screening is recommended for adults aged 5580 years who are at high risk for developing lung cancer because of a history of smoking. A yearly low-dose CT scan of the lungs is recomme nded for people who have at least a [id number] history of smoking and are a current smoker or have quit within the past 15 years. A pack year of smoking is smoking an average of 1 pack of cigarettes a day for 1 year (for example: 1 pack a day for 30 years or 2 packs a day for 15 years). Yearly screening should continue until the smoker has stopped smoking for at least 15 years. Yearly screening shou ld be stopped for people who develop a health problem that would prevent them from having lung cancer treatment. If you choose to drink alcohol, do not have more than 2 drinks per day. One drink is considered to be 12 ounces (355 mL) of beer, 5 ounces (148 mL) of wine, or 1.5 ounces (44 mL) of liquor. Avoid use of street drugs. Do not share needles with anyone. Ask for help if you need support or instructions about stopping the use of drugs. High blood pressure causes heart disease and increases the risk of stroke. Your blood pressure should be checked at least every 12 years. Ongoing high blood pressure should be treated with medic joao, if weight loss and exercise are not effective. If you are 4579 years old, ask your health care provider if you should take aspirin to prevent heart disease. Diabetes screening involves taking a blood sample to check your fasting blood sugar level. This should be done once every 3 years, after age 45, if you are within normal weight and without risk fac tors for diabetes. Testing should be considered at a younger age or be carried out more frequently if you are overweight and have at least 1 risk factor for diabetes. Colorectal cancer can be detected and often prevented. Most routine colorectal cancer screening begins at the age of 50 and continues through age 75. However, your health care provider may recommen d screening at an earlier age if you have risk factors for colon cancer. On a yearly basis, your health care provider may provide home test kits to check for hidden blood in the stool. Use of a small ca leandro at the end of a tube to directly examine the colon (sigmoidoscopy or colonoscopy) can detect the earliest forms of colorectal cancer. Talk to your health care provider about this at age 50, when ro utine screening begins. Direct exam of the colon should be repeated every 5 10 years through age 75, unless early forms of precancerous polyps or small growths are found. People who are at an increased risk for hepatitis B should be screened for this virus. You are considered at high risk for hepatitis B if: You were born in a country where hepatitis B occurs often. Talk with your health care provider about which countries are considered high risk. Your parents were born in a high-risk country and you have not received a shot to protect against hepatitis B (hepatitis B vaccine). You have HIV or AIDS. You use needles to inject street drugs. You live with, or have sex with, someone who has hepatitis B. You are a man who has sex with other men (MSM). You get hemodialysis treatment. You take certain medicines for conditions such as cancer, organ transplantation, and autoimmune conditions. Hepatitis C blood testing is recommended for all people born from 1945 through 1965 and any individual with known risks for hepatitis C. Practice safe sex. Use condoms and avoid high-risk sexual practices to reduce the spread of sexually transmitted infections (STIs). STIs include gonorrhea, chlamydia, syphilis, trichomonas, herpes, HPV, and human immunodeficiency virus (HIV). Herpes, HIV, and HPV are viral illnesses that have no cure. They can result in disability, cancer, and . If you are at risk of being infected with HIV, it is recommended that you take a prescription medicine daily to prevent HIV infection. This is called preexposure prophylaxis (PrEP). You are considered at risk if: You are a man who has sex with other men (MSM) and have other risk factors. You are a heterosexual man, are sexually active, and are at increased risk for HIV infection. You take drugs by injection. You are sexually active with a partner who has HIV. Talk with your health care provider about whether you are at high risk of being infected with HIV. If you choose to begin PrEP, you should first be tested for HIV. You should then be tested every 3 months for as long as you are taking PrEP. A one-time screening for abdominal aortic aneurysm (AAA) and surgical repair of large AAAs by ultrasound are recommended for men ages 65 to 75 years who are current or former smokers. Healthy men should no longer receive prostate-specific antigen (PSA) blood tests as part of routine cancer screening. Talk with your health care provider about prostate cancer screening. Testicular cancer screening is not recommended for adult males who have no symptoms. Screening includes self-exam, a health care provider exam, and other screening tests. Consult with your health c are provider about any symptoms you have or any concerns you have about testicular cancer. Use sunscreen. Apply sunscreen liberally and repeatedly throughout the day. You should seek shade when your shadow is shorter than you. Protect yourself by wearing long sleeves, pants, a wide-brimm ed hat, and sunglasses year round, whenever you are outdoors. Once a month, do a whole-body skin exam, using a mirror to look at the skin on your back. Tell your health care provider about new moles, moles that have irregular borders, moles that are larger th an a pencil eraser, or moles that have changed in shape or color. Stay current with required vaccines (immunizations). Influenza vaccine. All adults should be immunized every year. Tetanus, diphtheria, and acellular pertussis (Td, Tdap) vaccine. An adult who has not previously received Tdap or who does not know his vaccine status should receive 1 dose of Tdap. This initial do se should be followed by tetanus and diphtheria toxoids (Td) booster doses every 10 years. Adults with an unknown or incomplete history of completing a 3- dose immunization series with Td-containing vacc joao should begin or complete a primary immunization series including a Tdap dose. Adults should receive a Td booster every 10 years. Varicella vaccine. An adult without evidence of immunity to varicella should receive 2 doses or a second dose if he has previously received 1 dose. Human papillomavirus (HPV) vaccine. Males aged 1321 years who have not received the vaccine previously should receive the 3-dose series. Males aged 22 26 years may be immunized. Immunization i s recommended through the age of 26 years for any male who has sex with males and did not get any or all doses earlier. Immunization is recommended for any person with an immunocompromised condition thr ough the age of 26 years if he did not get any or all doses earlier. During the 3-dose series, the second dose should be obtained 48 weeks after the first dose. The third dose should be obtained 24 w eeks after the first dose and 16 weeks after the second dose. Zoster vaccine. One dose is recommended for adults aged 60 years or older unless certain conditions are present. Measles, mumps, and rubella (MMR) vaccine. Adults born before 1956 generally are considered immune to measles and mumps. Adults born in 1956 or later should have 1 or more doses of MMR vaccine unle ss there is a contraindication to the vaccine or there is laboratory evidence of immunity to each of the three diseases. A routine second dose of MMR vaccine should be obtained at least 28 days after th e first dose for students attending postsecondary schools, health care workers , or international travelers. People who received inactivated measles vaccine or an unknown type of measles vaccine during should receive 2 doses of MMR vaccine. People who received inactivated mumps vaccine or an unknown type of mumps vaccine before 1978 and are at high risk for mumps infection should consider i mmunization with 2 doses of MMR vaccine. Unvaccinated health care workers born before 1956 who lack laboratory evidence of measles, mumps, or rubella immunity or laboratory confirmation of disease erendira jaffe consider measles and mumps immunization with 2 doses of MMR vaccine or rubella immunization with 1 dose of MMR vaccine. Pneumococcal 13-valent conjugate (PCV13) vaccine. When indicated, a person who is uncertain of his immunization history and has no record of immunization should receive the PCV13 vaccine. An adult aged 19 years or older who has certain medical conditions and has not been previously immunized should receive 1 dose of PCV13 vaccine. This PCV13 should be followed with a dose of pneumococcal polysacc haride (PPSV23) vaccine. The PPSV23 vaccine dose should be obtained at least 8 weeks after the dose of PCV13 vaccine. An adult aged 19 years or older who has certain medical conditions and previously re ceived 1 or more doses of PPSV23 vaccine should receive 1 dose of PCV13. The PCV13 vaccine dose should be obtained 1 or more years after the last PPSV23 vaccine dose. Pneumococcal polysaccharide (PPSV23) vaccine. When PCV13 is also indicated , PCV13 should be obtained first. All adults aged 65 years and older should be immunized. An adult younger than age 65 year s who has certain medical conditions should be immunized. Any person who resides in a shelter or long-term care facility should be immunized. An adult smoker should be immunized. People with an imm unocompromised condition and certain other conditions should receive both PCV13 and PPSV23 vaccines. People with human immunodeficiency virus (HIV) infection should be immunized as soon as possible afte r diagnosis. Immunization during chemotherapy or radiation therapy should be avoided. Routine use of PPSV23 vaccine is not recommended for [place] Indians, [place] Natives, or people younger than 65 yea rs unless there are medical conditions that require PPSV23 vaccine. When indicated, people who have unknown immunization and have no record of immunization should receive PPSV23 vaccine. One-time revacc ination 5 years after the first dose of PPSV23 is recommended for people aged 1964 years who have chronic kidney failure, nephrotic syndrome, asplenia, or immunocompromised conditions. People who rec eived 12 doses of PPSV23 before age 65 years should receive another dose of PPSV23 vaccine at age 65 years or later if at least 5 years have passed since the previous dose. Doses of PPSV23 are not ne eded for people immunized with PPSV23 at or after age 65 years. Meningococcal vaccine. Adults with asplenia or persistent complement component deficiencies should receive 2 doses of quadrivalent meningococcal conjugate (MenACWY-D) vaccine. The doses should be o btained at least 2 months apart. Microbiologists working with certain meningococcal bacteria, recruits, people at risk during an outbreak, and people who travel to or live in countries with a h igh rate of meningitis should be immunized. A first-year college student up through age 21 years who is living in a residence schilling should receive a dose if he did not receive a dose on or after his 16th birthday. Adults who have certain high-risk conditions should receive one or more doses of vaccine. Hepatitis A vaccine. Adults who wish to be protected from this disease, have certain high-risk conditions, work with hepatitis A-infected animals, work in hepatitis A research labs, or travel to or work in countries with a high rate of hepatitis A should be immunized. Adults who were previously unvaccinated and who anticipate close contact with an international adoptee during the first [address] arrival in the [place] from a country with a high rate of hepatitis A should be immunized. Hepatitis B vaccine. Adults should be immunized if they wish to be protected from this disease, have certain high-risk conditions, may be exposed to blood or other infectious body fluids, are house hold contacts or sex partners of hepatitis B positive people, are clients or workers in certain care facilities, or travel to or work in countries with a high rate of hepatitis B. Haemophilus influenzae type b (Hib) vaccine. A previously unvaccinated person with asplenia or sickle cell disease or having a scheduled splenectomy should receive 1 dose of Hib vaccine. Regardless of previous immunization, a recipient of a hematopoietic stem cell transplant should receive a 3-dose series 612 months after his successful transplant. Hib vaccine is not recommended for adults with HIV infection. Preventive Service / Frequency Ages 19 to 39 Blood pressure check. / Every 1 to 2 years. Lipid and cholesterol check. / Every 5 years beginning at age 20. Hepatitis C blood test. / For any individual with known risks for hepatitis C. Skin self-exam. / Monthly. Influenza vaccine. / Every year. Tetanus, diphtheria, and acellular pertussis (Tdap, Td) vaccine. / Consult your health care provider. 1 dose of Td every 10 years. Varicella vaccine. / Consult your health care provider. HPV vaccine. / 3 doses over 6 months, if 26 or younger. Measles, mumps, rubella (MMR) vaccine. / You need at least 1 dose of MMR if you were born in 1957 or later. You may also need a second dose. Pneumococcal 13-valent conjugate (PCV13) vaccine. / Consult your health care provider. Pneumococcal polysaccharide (PPSV23) vaccine. / 1 to 2 doses if you smoke cigarettes or if you have certain conditions. Meningococcal vaccine. / 1 dose if you are age 19 to 21 years and a first-year college student living in a residence [place], or have one of several medical conditions. You may also need additional booster doses. Hepatitis A vaccine. / Consult your health care provider. Hepatitis B vaccine. / Consult your health care provider. Haemophilus influenzae type b (Hib) vaccine. / Consult your health care provider. Ages 40 to 64 Blood pressure check. / Every 1 to 2 years. Lipid and cholesterol check. / Every 5 years beginning at age 20. Lung cancer screening. / Every year if you are aged 5580 years and have a 91-swvi-snoj history of smoking and currently smoke or have quit within the past 15 years. Yearly screening is stopped o nce you have quit smoking for at least 15 years or develop a health problem that would prevent you from having lung cancer treatment. Fecal occult blood test (FOBT) of stool. / Every year beginning at age 50 and continuing until age 75. You may not have to do this test if you get a colonoscopy every 10 years. Flexible sigmoidoscopy or colonoscopy. / Every 5 years for a flexible sigmoidoscopy or every 10 years for a colonoscopy beginning at age 50 and continuing until age 75. Hepatitis C blood test. / For all people born from 1945 through 1965 and any individual with known risks for hepatitis C. Skin self-exam. / Monthly. Influenza vaccine. / Every year. Tetanus, diphtheria, and acellular pertussis (Tdap/Td) vaccine. / Consult your health care provider. 1 dose of Td every 10 years. Varicella vaccine. / Consult your health care provider. Zoster vaccine. / 1 dose for adults aged 60 years or older. Measles, mumps, rubella (MMR) vaccine. / You need at least 1 dose of MMR if you were born in 1957 or later. You may also need a second dose. Pneumococcal 13-valent conjugate (PCV13) vaccine. / Consult your health care provider. Pneumococcal polysaccharide (PPSV23) vaccine. / 1 to 2 doses if you smoke cigarettes or if you have certain conditions. Meningococcal vaccine. / Consult your health care provider. Hepatitis A vaccine. / Consult your health care provider. Hepatitis B vaccine. / Consult your health care provider. Haemophilus influenzae type b (Hib) vaccine. / Consult your health care provider. Ages 65 and over Blood pressure check. / Every 1 to 2 years. Lipid and cholesterol check./ Every 5 years beginning at age 20. Lung cancer screening. / Every year if you are aged 5580 years and have a 50-qrwv-qkyf history of smoking and currently smoke or have quit within the past 15 years. Yearly screening is stopped o nce you have quit smoking for at least 15 years or develop a health problem that would prevent you from having lung cancer treatment. Fecal occult blood test (FOBT) of stool. / Every year beginning at age 50 and continuing until age 75. You may not have to do this test if you get a colonoscopy every 10 years. Flexible sigmoidoscopy or colonoscopy. / Every 5 years for a flexible sigmoidoscopy or every 10 years for a colonoscopy beginning at age 50 and continuing until age 75. Hepatitis C blood test. / For all people born from 1945 through 1965 and any individual with known risks for hepatitis C. Abdominal aortic aneurysm (AAA) screening. / A one-time screening for ages 65 to 75 years who are current or former smokers. Skin self-exam. / Monthly. Influenza vaccine. / Every year. Tetanus, diphtheria, and acellular pertussis (Tdap/Td) vaccine. / 1 dose of Td every 10 years. Varicella vaccine. / Consult your health care provider. Zoster vaccine. / 1 dose for adults aged 60 years or older. Pneumococcal 13-valent conjugate (PCV13) vaccine. / Consult your health care provider. Pneumococcal polysaccharide (PPSV23) vaccine. / 1 dose for all adults aged 65 years and older. Meningococcal vaccine. / Consult your health care provider. Hepatitis A vaccine. / Consult your health care provider. Hepatitis B vaccine. / Consult your health care provider. Haemophilus influenzae type b (Hib) vaccine. / Consult your health care provider. Family history and personal history of risk and conditions may change your health care provider's recommendations. Document Released: 08/08/2002 Document Revised: 06/17/2014 Document Reviewed: 11/07/2011 [facility] Patient Information 2015 [employer] [facility]. This information is not intended to replace advice given to you by your health care provider. Make sure you discuss any questions you have with your health care provider. No follow up information was provided. Extracted from: Title: Office Visit Note Author: Zach Shepherd MD Date: 02/17/15 Assessment/Plan Cardiac murmur Ordered: Office Visit Level 5 Est 39652 Diabetes mellitus without mention of complication, type II or unspecified type , not stated as uncontrolled Ordered: Office Visit Level 5 Est 95425 Need for pneumococcal vaccination Done Ordered: Office Visit Level 5 Est 37154 Need for zoster vaccine Done. Ordered: Office Visit Level 5 Est 34027 OTHER AND UNSPECIFIED HYPERLIPIDEMIA Ordered: Office Visit Level 5 Est 11503 Personality change Would like to get a CT of the head with/without contrast. Will also check some lab. Ordered: Office Visit Level 5 Est 12381
--- OUTSIDE RECORDS SUMMARY | 2017-08-14 19:54 | External Medical Summary | Continuity of Care Document ---
:1935 Author Organization Via [facility] Allergies Active Description Code Type Severity Reaction Onset Reported/ Identified Relationship Clinical to Patient Status Yes No Known NKMA N/A N/A 05/15/2014 Medication Allergies Yes No Known NKMA N/A N/A 05/15/2014 Medication Allergies Medications Medication Packaging Start Stop Route Dosage Sig Date Date 1 tabs 01/15/20 Oral 10 mg 1 simvastatin(simva 14 014 tabs, Oral, statin 10 mg oral Bedtime (once a tablet) day), [employer] , 90 tabs tabs 05/15/20 Oral HYDROcodone-aceta 14 014 tabs, Oral, minophen([place] 5 q6hr mg-325 mg oral tablet) 05/15/20 Oral mg mg, tamsulosin(tamsul 14 014 Oral, Daily osin) caps 05/15/20 Oral mg cephalexin(Keflex 14 014 caps, Oral, QID 500 mg oral capsule) 2 caps 06/21/20 Oral 1,000 mg 2 amoxicillin(amoxi 14 015 caps, Oral, cillin 500 mg BID, 40 caps oral capsule) 07/03/19 IV Push 4-5 morphine(morphine 15 015 mg, IV Push, ) q1hr, PRN: Pain Severe (7-10) 2 mL 07/03/19 IV Push 4 mg 4 ondansetron(Zofra 15 015 mg, IV Push, n) Once, PRN: Nausea or Vomiting 1 tabs 07/04/19 Oral 1 pseudoephedrine-g 15 015 tabs, Oral, BID uaiFENesin(Mucine x D) 07/04/19 Oral 240 mg 240 docusate(Surfak 15 015 mg, Oral, Daily Stool Softener) 1 tabs 01/09/20 01/18/2 Oral 500 mg 1 amoxicillin(amoxi 15 015 tabs, Oral, BID cillin 500 mg oral tablet) 1,000 mL 07/11/19 IV 20 Lactated Ringers 15 015 mL/hr, IV Injection(Lactate d Ringers Injection 1,000 mL) 10 mL 07/11/19 IV Push 1 g 1 ceFAZolin(ceFAZol 15 015 g, IV Push, in) PREOP 1 mL 07/11/19 IV Push 1 mg 1 midazolam(Versed) 15 015 mg, IV Push, q5min, PRN: Sedation 1 mL 07/11/19 IV Push 50 mcg 50 fentaNYL(Sublimaz 15 015 mcg, IV Push, e) q5min, PRN: Sedation 500 mL 07/11/19 IV Sodium Chloride 15 015 KVO, IV 0.9%(Sodium Chloride 0.9% 500 mL) 07/11/19 Oral 1-2 HYDROcodone-aceta 15 015 tabs, Oral, minophen([place] q4hr, PRN: Pain 7.5 mg-325 mg Moderate (4-6) oral tablet) 07/11/19 IV Push 2-4 morphine(morphine 15 015 mg, IV Push, ) q1hr, PRN: Pain Severe (7-10) 2 mL 07/11/19 IV Push 4 mg 4 ondansetron(ondan 15 015 mg, IV Push, setron) q6hr, PRN: Nausea or Vomiting 0.25 mL 07/11/19 IV Push 0.5 mg 0.5 HYDROmorphone(Dil 15 015 mg, IV Push, audid) q30min, PRN: Pain - Breakthrough 1 tabs 07/11/19 Oral 1 oxyCODONE-acetami 15 015 tabs, Oral, nophen(oxyCODONE- q4hr, PRN: Pain acetaminophen 10 Mild (1-3) mg-325 mg oral tablet) 08/18/19 Oral 17 g 17 polyethylene 15 016 g, Oral, Daily, glycol dissolve in 3350(MiraLax oral water before powder for taking, 255 g reconstitution) 2 puffs 02/23/20 08/25/2 Inhalation 2 albuterol(ProAir 15 015 puffs, HFA 90 mcg/inh Inhalation, inhalation QID, 8.5 g, aerosol) PRN: as needed for wheezing 1 tabs 08/18/19 Oral 10 mg 1 simvastatin(simva 15 016 tabs, Oral, statin 10 mg oral Bedtime (once a tablet) day), [facility] . , 90 tabs 1 tabs 08/18/19 Oral 500 mg 1 metFORMIN(metFORM 15 016 tabs, Oral, IN 500 mg oral BID, 180 tabs tablet) 02/18/20 Oral 100 mg 100 docusate(docusate 15 016 mg, Oral, BID, ) PRN: as needed for constipation, 0 Refill(s) 0.5 mL 02/18/20 IntraMuscular 0.5 pneumococcal 15 015 mL, 13-valent IntraMuscular, conjugate Once vaccine(pneumococ erendira 13-valent conjugate vaccine) 07/14/19 See metFORMIN(metFORM 16 016 Instructions, IN 500 mg oral TAKE 1 TABLET tablet) TWICE DAILY, 180 tabs, 2 Refill(s) 07/14/19 See simvastatin(simva 16 016 Instructions, statin 10 mg oral TAKE 1 TABLET tablet) ONE TIME DAILY AT BEDTIME, 90 tabs, 1 Refill(s) 5 mL 08/24/19 Oral 5 promethazine-code 16 016 mL, Oral, ine(promethazine- Bedtime (once a codeine 6.25 day), Fax to mg-10 mg/5 mL [facility], PRN: oral syrup) as needed for cough, 90 mL, 0 Refill(s) 1 packets 08/31/19 Oral 1 azithromycin(Zith 16 016 packets, Oral, romax Z-Dre 250 Once, as mg oral tablet) directed on package labeling, 6 tabs, 0 Refill(s) 3 mL 09/15/19 NEB 2.5 mg 2.5 albuterol(albuter 16 016 mg=3 mL, NEB, ol 2.5 mg/3 mL q6hr (0.083%) (scheduled), 25 inhalation Each, 2 solution) Refill(s) 1 caps 09/15/19 Oral 200 mg 200 benzonatate(Bianca 16 016 mg=1 caps, dexter 200 mg oral Oral, TID, for capsule) 10 days, 30 caps, 1 Refill(s) 02/24/20 Oral 10 mg 10 cetirizine(cetiri 16 mg, Oral, zine) Daily, PRN: as needed for allergy symptoms, 0 Refill(s) 02/24/20 See metFORMIN(metFORM 16 Instructions, IN 500 mg oral TAKE 1 TABLET tablet) TWICE DAILY, 180 tabs, 2 Refill(s) 02/24/20 See simvastatin(simva 16 017 Instructions, statin 10 mg oral TAKE 1 TABLET tablet) ONE TIME DAILY AT BEDTIME, 90 tabs, 2 Refill(s) 03/23/20 Oral 28 mg 28 memantine(Namenda 16 016 mg, Oral, XR) Daily, 0 Refill(s) 1 caps 03/23/20 Oral 28 mg 28 memantine(Namenda 16 016 mg=1 caps, XR 28 mg oral Oral, Daily, 30 capsule, extended caps, 1 release) Refill(s) 07/20/19 Oral 81 mg 81 aspirin(aspirin) 17 mg, Oral, Daily, 0 Refill(s) 2 puffs 07/20/19 Inhalation 2 albuterol(ProAir 17 puffs, HFA 90 mcg/inh Inhalation, inhalation q4hr, PRN: as aerosol) needed for wheezing, 8.5 g, 2 Refill(s) 1 caps 01/05/20 Oral 28 mg 28 memantine(Namenda 17 mg=1 caps, XR 28 mg oral Oral, Daily, capsule, extended next fill from release) new pcp, 30 caps, 0 Refill(s) 01/11/20 See carbidopa-levodop 17 Instructions, 1 a(carbidopa-levod tab in the opa 25 mg-100 mg morning. 1/2 oral tablet) tab in the evening., 0 Refill(s) 1 caps 02/29/20 Oral 28 mg 28 memantine(Namenda 17 mg=1 caps, XR 28 mg oral Oral, Daily, capsule, extended next fill from release) new pcp, 90 caps, 0 Refill(s) 1 natalia 04/17/20 Topical 1 triamcinolone 17 natalia, Topical, topical(triamcino Daily, apply a lone 0.1% thin film to topical cream) affected area PRN, 60 g, 0 Refill(s) Problems Date Dx Attending Type Code Diagnosis Diagnosed By Coded 07/07/2014 Alana, Final V72.63 Pre-Procedural Laboratory Johnson Kingsley Examination 07/07/2014 Alana, Final V72.81 PREOPERATIVE Johnson Kingsley CARDIOVASCULAR EXAMINATION 07/07/2014 Alana, Reason V72.83 OTHER SPECIFIED Johnson Kingsley PREOPERATIVE EXAMINATION 07/16/2014 Alana, Final 250.00 Diabetes mellitus without Johnson Kingsley mention of complication, type II or unspecified t 07/16/2014 Alana, Final 272.4 OTHER AND UNSPECIFIED Johnson Kingsley HYPERLIPIDEMIA 07/16/2014 Alana, Final 564.09 OTHER CONSTIPATION Johnson Kingsley 07/16/2014 Alana, Reason 592.0 CALCULUS OF KIDNEY Johnson Kingsley 07/16/2014 Alana, Final 599.70 Hematuria, unspecified Johnson Kingsley 03/23/2016 Zach Shepherd Final G30.9 Alzheimer''s F disease, unspecified 03/23/2016 Zach Shepherd Final J00 Acute nasopharyngitis F [common cold] 06/29/2016 Zach Shepherd Final C61 Malignant neoplasm of F prostate 06/29/2016 Zach Shepherd Final E11.9 Type 2 diabetes mellitus F without complications 06/29/2016 Zach Shepherd Final G30.9 Alzheimer''s F disease, unspecified 06/29/2016 Zach Shepherd Final N20.0 Calculus of kidney F 07/21/2016 Zach Shepherd Final G30.9 Alzheimer''s F disease, unspecified 07/21/2016 Zach Shepherd Final K21.9 Gastro-esophageal reflux F disease without esophagitis 01/10/2017 Diana, Final C61 Malignant neoplasm of Willian W prostate 01/10/2017 Luzeus, Final E11.9 Type 2 diabetes mellitus Willian W without complications 01/10/2017 Luinstra, Final E78.0 Pure hypercholesterolemia Willian W 01/10/2017 Luinstra, Final G20 Parkinson''s Willian W disease 01/10/2017 Luinstra, Final G30.9 Alzheimer''s Willian W disease, unspecified 01/10/2017 Luinstra, Final I10 Essential (primary) Willian W hypertension 01/10/2017 Luinstra, Final K21.9 Gastro-esophageal reflux Willian W disease without esophagitis 01/10/2017 Luinstra, Final N20.0 Calculus of kidney Willian W 04/17/2017 Luinstra, Final E11.9 Type 2 diabetes mellitus Willian W without complications 04/17/2017 Luinstra, Final G20 Parkinson''s Willian W disease 04/17/2017 Luinstra, Final G30.9 Alzheimer''s Willian W disease, unspecified 04/17/2017 Luinstra, Final I10 Essential (primary) Willian W hypertension 04/17/2017 Luinstra, Final K21.9 Gastro-esophageal reflux Willian W disease without esophagitis 04/17/2017 Luinstra, Final L21.9 Seborrheic dermatitis, Willian W unspecified 04/17/2017 Luinstra, Final N20.0 Calculus of kidney Willian W 04/17/2017 Luinstra, Final Z85.46 Personal history of Willian Cummings malignant neoplasm of prostate Procedures Code Description Performed By Performed On Percutaneous 07/11/2014 35771 nephrostolithotomy or pyelostolithotomy, with or without dilat Office or other 02/24/2016 83355 outpatient visit for the evaluation and management of an established patient, which requires at least 2 of these 3 liu components: A detailed history; A detailed examination; Medical d Office or other 03/23/2016 55597 outpatient visit for the evaluation and management of an established patient, which requires at least 2 of these 3 liu components: An expanded problem focused history; An expanded prob Periodic 06/29/2016 72221 comprehensive preventive medicine reevaluation and management of an individual including an age and gender appropriate history, examination, counseling/anticipatory guidance/risk factor reduc Office or other 07/20/2016 07825 outpatient visit for the evaluation and management of an established patient, which requires at least 2 of these 3 liu components: An expanded problem focused history; An expanded prob Office or other 01/10/201793077 outpatient visit for the evaluation and management of an established patient, which requires at least 2 of these 3 liu components: A detailed history; A detailed examination; Medical d Office or other 04/17/2017 outpatient visit for the evaluation and management of an established patient, which requires at least 2 of these 3 liu components: A detailed history; A detailed examination; Medical d Results Test Result Range Comprehensive Metabolic Panel (CMP) - 01/10/17 11:34 Albumin 4.7 g/dL 3.4-4.8 Alkaline Phosphatase 63 U/L 40-150 ALT (SGPT) 8 U/L 0-55 Anion Gap 10 mEq/L 3-20 AST (SGOT) 15 U/L 5-34 Bilirubin Total 0.5 mg/dL 0.2-1.2 BUN 24 mg/dL 8-26 Calcium 10.0 mg/dL 8.4-10.2 Chloride 103 mEq/L 99-111 CO2 25 mEq/L 23-31 Creatinine 1.00 mg/dL 0.72-1.25 Globulin 2.5 g/dL 1.8-4.0 Glucose 108 mg/dL 70-99 Potassium 4.1 mEq/L 3.5-5.2 Protein 7.2 g/dL 6.0-7.6 Sodium 138 mEq/L 135-144 Lipid Panel - 01/10/17 11:34 Cardiac Risk 3.1 0.0-5.7 Cholesterol 162 mg/dL 0-199 HDL Cholesterol 52 mg/dL 40-84 LDL Cholesterol 79 mg/dL 0-130 Triglycerides 157 mg/dL 0-149 VLDL Cholesterol 31 mg/dL 0-28 eGFR - 01/10/17 11:34 eGFR >60 mL/min >60 CBC With Platelet and Differential - 01/10/17 11:34 Absolute Basophils 0.02 10*3/uL 0.00-0.20 Absolute Eosinophils 0.04 10*3/uL 0.00-0.50 Absolute Lymphocytes 0.89 10*3/uL 0.80-3.30 Absolute Monocytes 0.42 10*3/uL 0.30-1.00 Absolute Neutrophils 4.47 10*3/uL 1.90-7.00 Basophils 0 % 0-2 Eosinophils 1 % 0-4 HCT 40.7 % 42.0-52.0 HGB 13.9 g/dL 14.0-18.0 Immature Granulocytes 0.3 % 0.0-1.0 Lymphocytes 15 % 20-46 MCH 31.9 pg 27.0-32.0 MCHC 34.2 g/dL 32.0-36.0 MCV 93.3 fL 82.0-99.0 Monocytes 7 % 4-11 MPV 9.8 fL 8.8-14.8 Neutrophils 76 % 51-75 Platelet Count 131 K/uL 150-400 RBC 4.36 10*6/uL 4.60-6.20 RDW 12.8 % 11.5-14.5 WBC 5.9 K/uL 4.8-10.8 TSH with Reflex Free T4 - 01/10/17 11:34 TSH with Reflex Free T4 1.44 uIU/mL 0.35-4.94 Hemoglobin A1C - 01/10/17 11:34 Hemoglobin A1C 6.1 % 4.1-5.6 Estimated Average Glucose - 01/10/17 11:34 Estimated Average Glucose 128.4 mg/dL Urinalysis with reflex microscopic - 01/10/17 11:50 Appearance Clear NA Bilirubin Negative NA Negative Blood Negative NA Negative Color Yellow NA Glucose, Urine Negative Negative Ketones Negative Negative Leukocyte Esterase Negative NA Negative Nitrites Negative NA Negative pH 6.5 NA 5.0-8.0 Protein Negative Negative Specific [place] 1.012 NA 1.003-1.030 UA Collection type Voided NA Urobilinogen 0.2 mg/dL <1.0 Encounters ACCT No. Visit Discharge Status Pt. Type Provider Facility Loc./Unit Complaint Date/Time [id number] 09/20/2013 09/20/2013 CLS Outpatien 12:50:00 23:59:59 t [id number] 07/11/2014 07/13/2014 DIS Outpatien Alana Via [facility] J5W Right 68 05:49:00 11:30:00 [facility] calculi on [place] [id number] 07/04/2014 07/04/2014 DIS Outpatien Alana [facility] PAT [place] 54 12:33:00 23:59:00 aaron Johnson Edita tariq [facility] on [place] [id number] 01/11/2017 Document 1536 05:15:36 Registrat ion [id number] 01/05/2017 Document 1615 05:16:15 Registrat ion [id number] 07/21/2016 Document 1600 05:16:00 Registrat ion [id number] 03/24/2016 Document 1659 05:16:59 Registrat ion [id number] 02/25/2016 Document 1647 05:16:47 Registrat ion [id number] 09/16/2015 Document 1703 05:17:03 Registrat ion [id number] 09/01/2015 Document 1705 05:17:05 Registrat ion [id number] 08/25/2015 Document 1739 05:17:39 Registrat ion [id number] 07/15/2015 Document 1627 05:16:27 Registrat ion [id number] 04/15/2015 Document 3548 13:35:48 Registrat ion [id number] 04/15/2015 Document 2121 11:21:21 Registrat ion [id number] 04/15/2015 Document 5522 10:55:22 Registrat ion [id number] 04/15/2015 Document 4941 10:49:41 Registrat ion [id number] 04/15/2015 Document 4433 10:44:33 Registrat ion [id number] 04/15/2015 Document 1029 10:10:29 Registrat ion [id number] 04/17/2017 04/17/2017 DIS Outpatien Luinstra, Via [facility] New FM 3 MONTH 51 09:13:00 23:59:00 [facility] [id number] 01/10/2017 01/10/2017 DIS Outpatien Luinstra, Via [facility] New FM [address] 79 10:46:00 23:59:00 aaron [facility] to est [id number] 07/20/2016 07/20/2016 DIS Outpatien Joao, Via [facility] New FM congestion. 26 13:04:00 23:59:00 aaron Kohler [facility] [id number] 06/29/2016 06/29/2016 DIS Outpatien Joao, Via [facility] New FM 3 mo erika 12 13:06:00 23:59:00 aaron Bradshaw [facility] [id number] 03/23/2016 03/23/2016 DIS Outpatien Shepherd, Via [facility] New FM 1 mo erika 39 09:05:00 23:59:00 t Zach Bradshaw [facility] [id number] 02/24/2016 02/24/2016 DIS Outpatien Shepherd, [facility] New TCPA PHY 85 09:01:00 23:59:00 t Zach Bradshaw [facility] [id number] 09/15/2015 09/15/2015 DIS Outpatien Shepherd, [facility] FM Re 41 09:42:00 23:59:00 t Zach Bradshaw [facility] Clinic cough [id number] 08/31/2015 08/31/2015 DIS Outpatien Shepherd, [facility] FM cough 74 13:08:00 23:59:00 t Zach Bradshaw [facility] [id number] 08/24/2015 08/24/2015 DIS Outpatien [place] [facility] FM Cough, 06 10:31:00 23:59:00 Johanna walker, M Clinic Poss bronchitis [id number] 02/17/2015 02/17/2015 DIS Outpatien Shepherd, [facility] New annual PHY 24 13:17:00 23:59:00 t Zach Bradshaw [facility] [id number] 07/18/2014 07/18/2014 DIS Outpatien Alana [facility] Mur POST OP 15 11:38:00 23:59:00 Johnson walker Uro RECHECK D Clinic [id number] 07/15/2014 07/15/2014 DIS Outpatien Alana [facility] TUBE 78 11:28:00 23:59:00 Johnson walker Uro REMOVAL D Clinic [id number] 06/23/2014 06/23/2014 DIS Outpatien Alana [facility] Mur NTY - 6 MO 14 15:11:00 23:59:00 Johnson walker Uro F/U D Clinic [id number] 06/21/2014 06/21/2014 DIS Outpatien Ramírez, [facility] New IC BAD COUGH 75 10:06:00 23:59:00 aaron Kohler [facility] [id number] 05/26/2014 05/26/2014 DIS Outpatien Alana [facility] Ur NPV/FITZIG 20 12:53:00 23:59:00 t Johnson PT/STONES D Clinic [id number] 05/15/2014 05/15/2014 DIS Outpatien [place]and[place], Via [facility] New Ur kidney 25 15:04:00 23:59:00 t Lalit Kohler stones T Clinic [id number] 04/18/2017 Document 1730 05:17:30 Registrat ion [id number] 03/01/2017 Document 1701 05:17:01 Registrat ion [id number] 08/20/2014 Document 68 13:44:00 Registrat ion [id number] 08/18/2014 Document 51 13:35:00 Registrat ion [id number] 08/14/2014 Document 32 14:46:00 Registrat ion
--- OUTSIDE RECORDS SUMMARY | 2017-08-14 19:54 | External Medical Summary | Referral Summary ---
:1935 Author Organization [facility] [place] [address] Care Team Providers Name Role Phone Zach Shepherd Primary Care Physician Encounter VC Date(s): 08/31/15 - 08/31/15 [facility] [place] [phone] [place] Discharge Diagnosis: Acute URI Discharge Disposition: 01-Home or Self Care Attending Physician: Zach Shepherd MD Admitting Physician: Zach Shepherd MD Vital Signs Most recent to oldest [Reference Range]: 1 Peripheral Pulse Rate [60-100 bpm] 74 bpm (08/31/15 1:16 PM) Blood Pressure [90-140/60-90 mmHg] 116/64 mmHg (08/31/15 1:16 PM) SpO2 96 % (08/31/15 1:16 PM) Problem List Condition Effective Dates Status [...] Instructions, # 1 Each, 0 Refill(s), Pharmacy: [facility], ACCU-CHECK NURIA PLUS KIT; USE DIREC... Start Date: 05/25/15 Status: OrderedIntestinal Formula #1 Intestinal Formula #1, 0 Refill(s) Start Date: 08/18/14 Status: OrderedmetFORMIN 500 mg oral tablet See Instructions, TAKE 1 TABLET TWICE DAILY, # 180 tabs, 2 Refill(s), eRx: [facility], TAKE 1 TABLET TWICE DAILY Start Date: 07/14/15 Status: OrderedMiraLax oral powder for reconstitution 17 g, Oral, Daily, dissolve in water before taking, # 255 g, 0 Refill(s) Start Date: 08/18/14 Status: OrderedMiscellaneous DME DME Item Accu-chek softclix lancets Test blood sugars 2-4 times a day DX: 250.02, See Instructions,# 400 Each, 3 Refill(s), Pharmacy: [facility], Accu -chek softclix lancets; Test blood sugars 2-4times a day; DX:250.02, Supply Start Date: 08/18/14 Status: OrderedMiscellaneous DME DME Item Accu-chek Nuria Plus Test Strips Test blood sugars 2-4 times a day DX :250.02, See Instructions, # 400 Each, 3 Refill(s), Pharmacy: [facility], Accu-chek Nuria Plus Test Strips; Test blood sugars 2-4 times a day; DX:250.02, Supply Start Date: 08/18/14 Status: Orderedpromethazine-codeine 6.25 mg-10 mg/5 mL oral syrup 5 mL, Oral, Bedtime (once a day), as needed for cough, Fax to [facility], # 90 mL, 0 Refill(s) Start Date: 08/24/15 Status: Orderedsimvastatin 10 mg oral tablet See Instructions, TAKE 1 TABLET ONE TIME DAILY AT BEDTIME, # 90 tabs, 1 Refill(s ), eRx: [facility], TAKE 1 TABLET ONE [...] Vasectomy 1mixed tubular adeoma/hyperplastic, repeat in 5 [id number] epithhelial changes, , to set up appointment with Dr. Nieto for endoscopic ultrasound with possible biopsy submucosl esophageal [id number] from documented surgical [id number] by radioation Social History Social History Type Response Smoking Status Never smoker Assessment and Plan Extracted from: Title: Ambulatory Patient Education Author: Zach Shepherd MD Date: 08/31/15 ENT Upper Respiratory Infection Most upper respiratory infections (URIs) are a viral infection of the air passages leading to the lungs. A URI affects the nose, throat, and upper air passages. The most common type of URI is nasopharyn gitis and is typically referred to as "the common cold." URIs run their course and usually go away on their own. Most of the time, a URI does not require medical attention, but sometimes a bacterial infection in the upper airways can follow a viral infection. This is called a secondary infection. Sinus and middle ear infections are common types of secondary upper respiratory infections. Bacterial pneumonia can also complicate a URI. A URI can worsen asthma and chronic obstructive pulmonary disease (COPD). Sometimes, these complications can require emergency medical care and may be life threatening. CAUSES Almost all URIs are caused by viruses. A virus is a type of germ and can spread from one person to another. RISKS FACTORS You may be at risk for a URI if: You smoke. You have chronic heart or lung disease. You have a weakened defense (immune) system. You are very young or very old. You have nasal allergies or asthma. You work in crowded or poorly ventilated areas. You work in health care facilities or schools. SIGNS AND SYMPTOMS Symptoms typically develop 23 days after you come in contact with a cold virus. Most viral URIs last 710 days. However, viral URIs from the influenza virus (flu virus) can last 1418 days and are typically more severe. Symptoms may include: Runny or stuffy (congested) nose. Sneezing. Cough. Sore throat. Headache. Fatigue. Fever. Loss of appetite. Pain in your forehead, behind your eyes, and over your cheekbones ( sinus pain). Muscle aches. DIAGNOSIS Your health care provider may diagnose a URI by: Physical exam. Tests to check that your symptoms are not due to another condition such as: Strep throat. Sinusitis. Pneumonia. Asthma. TREATMENT A URI goes away on its own with time. It cannot be cured with medicines, but medicines may be prescribed or recommended to relieve symptoms. Medicines may help: Reduce your fever. Reduce your cough. Relieve nasal congestion. HOME CARE INSTRUCTIONS Take medicines only as directed by your health care provider. Gargle warm saltwater or take cough drops to comfort your throat as directed by your health care provider. Use a warm mist humidifier or inhale steam from a shower to increase air moisture. This may make it easier to breathe. Drink enough fluid to keep your urine clear or pale yellow. Eat soups and other clear broths and maintain good nutrition. Rest as needed. Return to work when your temperature has returned to normal or as your health care provider advises. You may need to stay home longer to avoid infecting others. You can also use a face mask and c areful hand washing to prevent spread of the virus. Increase the usage of your inhaler if you have asthma. Do not use any tobacco products, including cigarettes, chewing tobacco, or electronic cigarettes. If you need help quitting, ask your health care provider. PREVENTION The best way to protect yourself from getting a cold is to practice good hygiene. Avoid oral or hand contact with people with cold symptoms. Wash your hands often if contact occurs. There is no clear evidence that vitamin C, vitamin E, echinacea, or exercise reduces the chance of developing a cold. However, it is always recommended to get plenty of rest, exercise, and practice good nutrition. SEEK MEDICAL CARE IF: You are getting worse rather than better. Your symptoms are not controlled by medicine. You have chills. You have worsening shortness of breath. You have brown or red mucus. You have yellow or brown nasal discharge. You have pain in your face, especially when you bend forward. You have a fever. You have swollen neck glands. You have pain while swallowing. You have white areas in the back of your throat. SEEK IMMEDIATE MEDICAL CARE IF: You have severe or persistent: Headache. Ear pain. Sinus pain. Chest pain. You have chronic lung disease and any of the following: Wheezing. Prolonged cough. Coughing up blood. A change in your usual mucus. You have a stiff neck. You have changes in your: Vision. Hearing. Thinking. Mood. MAKE SURE YOU: Understand these instructions. Will watch your condition. Will get help right away if you are not doing well or get worse. This information is not intended to replace advice given to you by your health care provider. Make sure you discuss any questions you have with your health care provider. Document Released: 12/06/2001 Document Revised: 03/31/2015 Document Reviewed: 09/17/2014 [facility] Patient Information 2015 [facility], [facility]. No follow up information was provided. Extracted from: Title: Office Visit Note Author: Zach Shepherd MD Date: 08/31/15 Assessment/Plan Acute upper respiratory infection, unspecified, Acute URI Start Mucinex DM 1200mg bid and start a Z-pack. Ordered: Office Visit Level 3 Est 52732 Office Visit Level 3 Est 43773
--- OUTSIDE RECORDS SUMMARY | 2017-08-14 19:54 | External Medical Summary | Referral Summary ---
:1935 Author Organization [facility] [place] [address] Care Team Providers Name Role Phone Zach Shepherd Primary Care Physician Encounter VC Date(s): 08/24/15 - 08/24/15 [facility] [place] [phone] [place] Discharge Diagnosis: Cough Discharge Diagnosis: Acute upper respiratory infection Discharge Disposition: 01-Home or Self Care Attending Physician: Johanna Landis PA-C Admitting Physician: Johanna Landis PA-C Vital Signs Most recent to oldest [Reference Range]: 1 Peripheral Pulse Rate [60-100 bpm] 72 bpm (08/24/15 10:40 AM) Respiratory Rate [14-20 br/min] 18 br/min (08/24/15 10:40 AM) Blood Pressure [90-140/60-90 mmHg] 122/78 mmHg (08/24/15 10:40 AM) Problem List Condition Effective Dates Status [...] Instructions, # 1 Each, 0 Refill(s), Pharmacy: [facility], ACCU-CHECK NURIA PLUS KIT; USE DIREC... Start Date: 05/25/15 Status: OrderedIntestinal Formula #1 Intestinal Formula #1, 0 Refill(s) Start Date: 08/18/14 Status: OrderedmetFORMIN 500 mg oral tablet See Instructions, TAKE 1 TABLET TWICE DAILY, # 180 tabs, 2 Refill(s), eRx: [facility], TAKE 1 TABLET TWICE DAILY Start Date: 07/14/15 Status: OrderedMiraLax oral powder for reconstitution 17 g, Oral, Daily, dissolve in water before taking, # 255 g, 0 Refill(s) Start Date: 08/18/14 Status: OrderedMiscellaneous DME DME Item Accu-chek softclix lancets Test blood sugars 2-4 times a day DX: 250.02, See Instructions,# 400 Each, 3 Refill(s), Pharmacy: [facility], Accu -chek softclix lancets; Test blood [...] # 90 tabs, 1 Refill(s ), eRx: [facility], TAKE 1 TABLET [...] Vasectomy 1mixed tubular adeoma/hyperplastic, repeat in 5 [id number] epithhelial changes, , to set up appointment with Dr. Nieto for endoscopic ultrasound with possible biopsy submucosl esophageal [id number] from documented surgical [id number] by radioation Social History Social History Type Response Smoking Status Never smoker Assessment and Plan Extracted from: Title: Ambulatory Patient Education Author: Johanna Landis PA-C Date: Allergy Cough, Adult A cough is a reflex that helps clear your throat and airways. It can help heal the body or may be a reaction to an irritated airway. A cough may only last 2 or 3 weeks (acute) or may last more than 8 weeks (chronic). CAUSES Acute cough: Viral or bacterial infections. Chronic cough: Infections. Allergies. Asthma. Post-nasal drip. Smoking. Heartburn or acid reflux. Some medicines. Chronic lung problems (COPD). Cancer. SYMPTOMS Cough. Fever. Chest pain. Increased breathing rate. High-pitched whistling sound when breathing (wheezing). Colored mucus that you cough up (sputum). TREATMENT A bacterial cough may be treated with antibiotic medicine. A viral cough must run its course and will not respond to antibiotics. Your caregiver may recommend other treatments if you have a chronic cough. HOME CARE INSTRUCTIONS Only take jrts-bca-hopfykc or prescription medicines for pain, discomfort, or fever as directed by your caregiver. Use cough suppressants only as directed by your caregiver. Use a cold steam vaporizer or humidifier in your bedroom or home to help loosen secretions. Sleep in a semi-upright position if your cough is worse at night. Rest as needed. Stop smoking if you smoke. SEEK IMMEDIATE MEDICAL CARE IF: You have pus in your sputum. Your cough starts to worsen. You cannot control your cough with suppressants and are losing sleep. You begin coughing up blood. You have difficulty breathing. You develop pain which is getting worse or is uncontrolled with medicine. You have a fever. MAKE SURE YOU: Understand these instructions. Will watch your condition. Will get help right away if you are not doing well or get worse. This information is not intended to replace advice given to you by your health care provider. Make sure you discuss any questions you have with your health care provider. Document Released: 12/09/2011 Document Revised: 09/03/2012 Document Reviewed: 12/09/2011 [facility] Patient Information 2015 [employer]. ENT Upper Respiratory Infection Most upper respiratory [...] 12/06/2001 Document Revised: 03/31/2015 Document Reviewed: 09/17/2014 [facility] Patient Information 2015 [employer]. No follow up information was provided. Extracted from: Title: Office Visit Note- URI Author: Johanna Landis PA-C Date: 08/24/15 Assessment/Plan Acute upper respiratory infection D/w and pt that this appears viral in nature. He is to rest and continue with OTC's for sx relief. Push fluids. He is to call clinic by 3/4 or 3/7 if not improved for abx. Ordered: Office Visit Level 4 Est 58024 Cough Will prescribe pt some Prometh/codeine to help with cough at night. He is warned of the potential of drowsiness.D/w them that if he feels SOA or wheezing, then he may try a couple puffs of the ProAir to see if it helps. No more than 4 times per day. Ordered: Office Visit Level 4 Est 06294 Orders: promethazine-codeine, 5 mL, Oral, Bedtime (once a day), as needed for cough, Fax to [facility], # 90 mL, 0 Refill(s)
--- OUTSIDE RECORDS SUMMARY | 2017-08-14 19:54 | External Medical Summary | Referral Summary ---
:1935 Author [facility] Address [address] [place] [address] [place] [address] Care Team Providers Name Role Phone Zach Shepherd Primary Care Physician Encounter VC Date(s): 09/15/15 - 09/15/15 [facility] [place] [phone] [place] Discharge Disposition: 01-Home or Self Care Attending Physician: Zach Shepherd MD Admitting Physician: Zach Shepherd MD Vital Signs Most recent to oldest [Reference Range]: 1 Peripheral Pulse Rate [60-100 bpm] 70 bpm (09/15/15 9:57 AM) Blood Pressure [90-140/60-90 mmHg] 130/68 mmHg (09/15/15 9:57 AM) SpO2 98 % (09/15/15 9:57 AM) Problem List Condition Effective Dates Status Health Status Informant Acute pain(Confirmed) Active Bleeding precautions(Confirmed)1 Active Diabetes(Confirmed) Active patient History of malignant neoplasm of Active prostate(Confirmed) Kidney stone(Confirmed) Active patient Prostate cancer(Confirmed) Active 1Problem added automatically by system based on initiation of Bleeding Precautions Plan of Care Allergies, Adverse Reactions, Alerts No Known Medication Allergies Medications albuterol 2.5 mg/3 mL (0.083%) inhalation solution 2.5 mg 3 mL, NEB, q6hr (scheduled), # 25 Each, 2 Refill(s), Pharmacy: [id number], 3 mL NEB q6hr (scheduled) Start Date: 09/15/15 Status: OrderedGlucometer (DME) DME Item ACCU-CHECK NURIA PLUS KIT USE DIRECTED TO MONITOR BLOOD SUGAR QTY: 1 DX:E11.[facility] , See Instructions, # 1 Each, 0 Refill(s), Pharmacy: [facility], ACCU-CHECK NURIA PLUS KIT; USE DIREC... Start Date: 05/25/15 Status: OrderedIntestinal Formula #1 Intestinal Formula #1, 0 Refill(s) Start Date: 08/18/14 Status: OrderedmetFORMIN 500 mg oral tablet See Instructions, TAKE 1 TABLET TWICE DAILY, # 180 tabs, 2 Refill(s), eRx: [facility], TAKE 1 TABLET TWICE DAILY Start Date: 07/14/15 Status: OrderedMiscellaneous DME DME Item Accu-chek softclix lancets Test blood sugars 2-4 times a day DX: 250.02, See Instructions,# 400 Each, 3 Refill(s), Pharmacy: [facility], Accu -chek softclix lancets; Test blood sugars 2-4times a day; DX:250.02, Supply Start Date: 08/18/14 Status: OrderedMiscellaneous DME DME Item Accu-chek Nuria Plus Test Strips Test blood sugars 2-4 times a day DX :250.02, See Instructions, # 400 Each, 3 Refill(s), Pharmacy: [facility], Accu-chek Nuria Plus Test Strips; Test blood sugars 2-4 times a day; DX:250.02, Supply Start Date: 08/18/14 Status: Orderedpromethazine-codeine 6.25 mg-10 mg/5 mL oral syrup 5 mL, Oral, Bedtime (once a day), as needed for cough, Fax to [facility], # 90 mL, 0 Refill(s) Start Date: 08/24/15 Status: Orderedsimvastatin 10 mg oral tablet See Instructions, TAKE 1 TABLET ONE TIME DAILY AT BEDTIME, # 90 tabs, 1 Refill(s ), eRx: [facility], TAKE 1 TABLET ONE TIME DAILY AT BEDTIME Start Date: 07/14/15 Status: OrderedTessalon 200 mg oral capsule 200 mg 1 caps, Oral, TID, X 10 days, # 30 caps, 1 Refill(s), Pharmacy: [id number], 1 caps Oral TID,x10 days Start Date: 09/15/15 Stop Date: 10/05/15 Status: Ordered Results No data available for [...] Vasectomy 1mixed tubular adeoma/hyperplastic, repeat in 5 [id number] epithhelial changes, , to set up appointment with Dr. Nieto for endoscopic ultrasound with possible biopsy submucosl esophageal [id number] from documented surgical [id number] by radioation Social History Social History Type Response Smoking Status Never smoker Assessment and Plan No data available for this section
[2017-08-14] MEDS ORDERED: NS 1,000 ML IV ONE (22:15)
--- NOTE | 2017-08-14 23:04 | History & Physical Report ---
History of Present Illness Date: 08/15/17 Chief complaint: cough, weakness HPI: 82-year-old male w/ h/o DM type 2, Parkinson's, GERD, HLD, mild Dementia/memory issues on Namenda presents to the emergency department with a chief complaint of global weakness especially in the lower extremities and a "deep" cough. Patient noted onset of symptoms of cough a couple of days ago, and LE issues/ global weakness yesterday. Cough is productive of a clear sputum. He has also been more generally weak than normal - progressively more weak over the past 24 hours and today had a difficult time getting out of the chair. Had been able to walk on the track at the local [facility] up until Monday. He denies any trauma or injury. He denies any pain or discomfort. Patient was at home when his symptoms began. Patient and patient's family report subjective fevers at home, and overall just not feeling well Denies cp, chills, sweats, diaphoresis, soa, n/v/d; denies any other focal neuro issues. Occasional wheezing In ER patient tested positive for influenza A and started on Tamiflu 75mg. Patient had EKG which showed no acute changes per report, CXR w/ no acute process per preliminary reading and CT head negative. ER physician noted non focal weakness or gross deficit on exam. Patient's bp elevated, sats 97% on RA and temp 98.9F in ER. Patient to be admitted to the hospitalist service for further evaluation and management Review of Systems All systems PM: 10-point ROS was reviewed, no additional remarkable complaints except Past Medical History Clinic Medical History (Last Reviewed 02/02/17 @ 15:35 by OSIRIS Elliott) Dementia (Chronic Medical) Hypercholesterolemia (Chronic Medical) GERD DM Type 2 Parkinson's - mild masked facies and shuffling gait; no resting tremor Elevated BP w/o specific dx of HTN Surgical History: 1. Prostate: 2009. 2. Kidney stone removal: 2014. 3. Colonoscopy: 2015 Family History: Family History (Last Reviewed 08/07/17 @ 10:26 by OSIRIS Orlando) Father Stroke Heart attack Mother HTN (hypertension) Family History Updates: Patient's mother lived to be 106; father at age 65 complications of Carotid disease but also had CAD - Social History Smoking status: Never smoker Medications Home Medications Medication Instructions Recorded Confirmed Type Namenda XR (memantine) 28 mg 28 mg PO DAILY each 01/25/17 08/14/17 History capsule sprinkle,extended release 24hr Nexium (Esomeprazole) 20 mg 20 mg PO DAILY cap 01/25/17 08/14/17 History capsule,delayed release Zyrtec (Cetirizine) 10 mg tablet 10 mg PO DAILY PRN tab 01/25/17 08/14/17 History aspirin 81 mg tablet,delayed 81 mg PO DAILY tab 02/02/17 08/14/17 History release Hydrocodone/Chlorphen Oral Liq 5 ml PO PRN PRN 08/14/17 08/14/17 History [Tussionex] Metformin [Glucophage] 500 mg PO BID 08/14/17 08/14/17 History Simvastatin [Zocor] 10 mg PO HS 08/14/17 08/14/17 History guaiFENesin [Mucinex] 1,200 mg PO BID PRN 08/14/17 08/14/17 History Allergies Allergy/AdvReac Type Severity Reaction Status Date / Time No Known Allergies Allergy Verified 08/14/17 19:50 Exam Vital Signs: Temperature 98.9 F 08/14/17 19:16 Pulse Rate 75 08/14/17 22:06 Respiratory Rate 20 08/14/17 19:16 Blood Pressure 184/86 H 08/14/17 22:06 Pulse Oximetry 95 08/14/17 22:06 Telemetry Rhythm: Sinus Rhythm - Constitutional Present: no acute distress, well nourished, well developed - Routine HEENT Exam Head: Present: normocephalic, atraumatic Eye: Present: EOMI, PERRL ENT: Present: mucous membranes dry, nares patent - Routine Neck Exam Present: supple. Absent: JVD - Routine Respiratory Exam Present: CTA bilaterally. Absent: accessory muscle use, dyspnea, decreased breath sounds, prolonged expiratory phase, rales, respiratory distress, rhonchi , stridor, wheezes, crackles - Routine Cardiovascular Exam Present: RRR, S1, S2 - Routine Abdominal Exam Present: soft, normoactive bowel sounds, non distended, non tender - Routine Extremities Exam Absent: cyanosis, clubbing, edema - Routine Neurological Exam Present: alert, oriented X3 Mild masked facies: no resting tremor; able to spontaneously move all 4 ext w/ o issue - no objective focal weakness but gait was not tested. - Routine Psychiatric Exam Present: normal affect Results - Labs CBC & Chem 7: 08/15/17 05:07 08/15/17 05:07 Microbiology Results: Microbiology 08/14/17 22:42 Peripheral/Iv Start Blood Culture - Preliminary Culture Initiated - Results Pending 08/14/17 22:38 Peripheral/Iv Start Blood Culture - Preliminary Culture Initiated - Results Pending Assessment and Plan Assessment and Plan: A/ 1) Acute Influenza type A 2) Acute weakness, especially lower extremity weakness w/ patient concern for RLE > LLE - however after d/w patient and patient's seems more like overall global weakness and likely r/t #1 3) DM type 2 4) GERD 5) HLD 6) Memory issues on Namenda 7) h/o Parkinson's on Sinemet 8) Elevated BP w/o diagnosis of HTN P/ Admit to Hospitalist Tamiflu 75mg po BID x 5 days total IVFs that of NS at 75 cc/hour Blood cultures pending PT consult Hold Zocor and Metformin Continue other home medications Correctional Insulin SSI Consistent Carb diet Labs in AM Telemetry If having any new focal neuro issues in AM consider Neurology consult Albuterol per neb q 4 hours prn Patient and patient's spouse verbalized desire for patient to be DNR DVT Prophylaxis: SCD's Resuscitation Status: Do Not Resuscitate - Physician Narrative Physician: Elizabeth Gomez MD Narrative: Date: 08/15/17 1213 See note dictated 08/15/17 for addendum to H&P. Hospital Course Summary Disclaimer: The visit summary below is not to be considered part of the above Progress Note.
[2017-08-14] MEDS ORDERED: NS 1,000 ML IV SCH (23:14)
[2017-08-14] MEDS ORDERED: GUAIFENESIN LA 600 MG TABLET PO PRN (23:14)
[2017-08-14] MEDS ORDERED: ACETAMINOPHEN 325 MG TABLET PO PRN (23:14)
[2017-08-14 23:17] VITALS: BMI 26.4
[2017-08-14 23:26] VITALS: O2SAT 96
[2017-08-14] MEDS ORDERED: ALBUTEROL 2.5mg/3ml (0.083%) NEB AEROSOL PRN (23:45)
[2017-08-14] MEDS ORDERED: INSULIN ASPART 100unit/ml INJECTION SQ PRN (23:46)
[2017-08-14] MEDS ORDERED: DEXTROSE 50% SYRINGE 50ml (1 AMP) IVP PRN (23:46)
[2017-08-14] MEDS ORDERED: GLUCOSE ORAL GEL 40% 37.5gm PO PRN (23:46)
[2017-08-15] MEDS ORDERED: NS 1,000 ML IV SCH (06:00)
[2017-08-15] MEDS ORDERED: OMEPRAZOLE 20 MG CAPSULE PO SCH (07:30)
[2017-08-15 07:46] VITALS: BP 141/71; RESP 18; TEMP 98.6
--- NOTE | 2017-08-15 08:08 | CT Scan Report ---
Indication: weakness PROCEDURE: CT head/brain wo con: Encounter: Initial Comparison: None Technique: Axial CT images through the head were performed without contrast. Iterative Reconstruction dose reducing technique was utilized. FINDINGS: Mild atrophy. The ventricles are of normal size, shape, and contour for the patient's age. There are scattered areas of low attenuation in the white matter which most likely represent changes from chronic microvascular ischemia. The brainstem, cerebellum, and cerebral hemispheres otherwise have a normal morphology and CT attenuation. There is no evidence of midline displacement. No hemorrhage, signs of acute territorial stroke, mass effect, mass lesions, or edema is evident. The visualized portions of the skull base, midface, and calvarium demonstrate no abnormality. The paranasal sinuses are well aerated and free of significant disease. The tympanic and mastoid cavities appear normal. IMPRESSION: No acute intracranial abnormality or hemorrhage. There is a preliminary report by [facility]. .
--- NOTE | 2017-08-15 08:08 | XRay Report ---
Indication: cough and congestion for two days PROCEDURE: XR chest 1V: Encounter: Initial Comparison: None FINDINGS: The lungs are clear. There is no abnormal airspace opacity, pleural effusion or pneumothorax identified. The heart size, pulmonary vasculature and mediastinum are within normal limits. IMPRESSION: No acute cardiopulmonary abnormality. .
[2017-08-15] MEDS ORDERED: MEMANTINE 10 MG TABLET PO SCH (09:00)
[2017-08-15] MEDS ORDERED: --POM--ASPIRIN *EC* 81 MG TABLET PO SCH (09:00)
[2017-08-15] MEDS: CARBIDOPA PO SCH ×2 (09:38→15:04)
[2017-08-15] MEDS: LEVODOPA PO SCH ×2 (09:38→15:04)
[2017-08-15 10:19] VITALS: PULSE 71
--- NOTE | 2017-08-15 12:24 | Progress Note ---
Progress Note: Dr. Dooley's note reviewed. Mr. Adame interviewed and examined. His provides majority of history. CC: Cough/weakness HPI: Mr. Adame is an 82-year-old male with Parkinson's disease was had recurrent respiratory infections over the past 3 months. Current episode started 2 days prior to hospitalization with constant nonproductive cough accompanied by increasing dyspnea. His reports that he was wheezing at times and that the cough was so intense that he could not stop coughing to catch his breath. He developed progressive weakness yesterday such that he was unable to ambulate independently or use his arms to get out of a chair. Patient describes generalized weakness as does his . Patient reports decreased oral intake with generalized myalgias but no fever, chills, or sweats. He specifically denies any back or neck pain. He had no falls although has been stumbling somewhat due to weakness. Prior to onset of illness he walked at the [facility] regularly to maintain muscle tone. Evaluation in the emergency room PH/SH/FH: agree with that recorded above with additional history of prostate cancer previous to treated with surgery and XRT. Patient has also had an appendectomy in the past. Social history notable for no past history of illicit drug use and occasional alcohol use couple times a week. Patient has a DO NOT RESUSCITATE order and his is his DPOA. In addition to previously described family history the patient had a sister who of multiple strokes after paralysis in an MVA years before; one brother has atrial fibrillation and is otherwise healthy. ROS: 10 point review negative outside of hearing loss and symptoms described in the history of present illness. EXAM: General-NAD, hard of hearing, often defers history to his ; 98.5 124/67 95 % on room air HEENT-PERRL, EOMI without nystagmus, conjunctiva clear, sclera anicteric, conjugate gaze, facial structures symmetric, oropharynx clear, neck supple and without adenopathy Lungs-respirations nonlabored, good airflow, very faint crackles at the left base; no wheezing present Cardiac-regular rhythm, S1-S2 Abd-soft, nontender, without palpable mass, bowel sounds present Ext-without edema Skin-no evidence of rash or wounds on exposed skin surfaces Neuro-cranial nerves 3-12 intact, increased motor tone with cogwheeling present at the wrist/elbows bilaterally, no tremor with the arms outstretched, proximal/ distal power graded 4/5 in the upper and lower extremities, no drift upper extremities, sensation intact to light touch and cold upper/lower extremities and across 3 distributions of the face. Psych-pleasant, cooperative, calm DATA: Chest x-ray reviewed by myself-NAD Head CT reviewed by myself demonstrating mild atrophy and chronic white matter changes but no acute intracranial process. EKG also reviewed by myself-SR, normal waveforms, no acute ST/T-wave changes. Respiratory viral panel positive for influenza A White count 4.4, hemoglobin 12.2 with normal MCV; chemistries unremarkable other than glucose 160 on admission. A/P: Influenza A Generalized weakness Diabetes mellitus, type II-no insulin/complications Dementia Parkinson's disease Elevated blood pressures Mr. Adame is significantly improved following hydration overnight. Tamiflu was initiated on arrival yesterday and cough has improved such that he did not cough at all during my evaluation or when examined. Iinspiration did not trigger cough today and patient is taking deep breaths and oxygenating well. Physical therapy evaluation was unremarkable and patient felt stable for discharge home. We'll ask occupational therapy to evaluate to determine if additional services may be necessary in the home. Breathing treatments initiated overnight but the patient has not required any and he has this capacity at home. Unclear what intervention has led to improvement in cough. Anticipate discharge later today.
--- NOTE | 2017-08-15 14:23 | Discharge Summary ---
Discharge Summary- Blank Discharge Summary: Mr. Adame was admitted with cough and generalized weakness resulting in inability to ambulate independently. Influenza A was identified and Tamiflu initiated. He was treated with IV fluids overnight and felt significantly improved on the morning of 08/15. Physical therapy evaluated the patient and identified no significant deficits other than slightly slowed gait. Patient was able to walk independently on 08/15 and felt stable for discharge home at this time. His did not feel additional in-home services would be needed. Blood pressures were modestly elevated during the hospital course and follow-up in the office is recommended. Patient will resume all usual home medications and continue standard 5 day course of Tamiflu. He has a nebulizer at home with medications should he need it for cough or wheezing. Follow-up with Dr. Ortiz in approximately one week for reassessment. Diagnoses: Influenza A, generalized weakness-resolved, Parkinson's disease, probable dehydration, diabetes mellitus-type II
[2017-08-15] MEDS ORDERED: PNEUMOCOCCAL 23 VACCINE 0.5ml INJECTION IM ONE (16:00)
[2017-08-15] MEDS ORDERED: SIMVASTATIN 10 MG PO SCH (21:00)
[2017-08-16] MEDS ORDERED: MEMANTINE 28 MG PO SCH (09:00)
== END 2017-08-15 15:05 | disposition home or self-care (01) ==
LOC: ED 19:01 → MED 19:01
PROVIDERS: ADMIT Internal Medicine; ATTEND Internal Medicine